=== PATIENT | female | born 1950 | race Caucasian/White ===

== ENCOUNTER → 2016-07-09 | Outpatient (CLI) | payer OTHER, MEDICARE ==
[~2016-07-09] MED LIST: ACET-1487 PO; ACT/35 PO; ASPI81TA28 PO; BUTA1CAP17 PO; CALC-338 PO; HYDR-5688 PO; IMD/2 PO; MULTTAB PO; NUTR-706 PO; PEPCID PO; PRAS25TA PO; SUMA50TA17 PO; WHEAPOW13 PO
[2016-07-09 10:05] LABS: ALT/SGPT 17 U/L (12-78); BLOOD UREA NITROGEN 10 mg/dl (7-18); CALCIUM 8.7 mg/dl (8.5-10.1); CARBON DIOXIDE 25 mmol/L (21-32); CHLORIDE 106 mmol/L (98-107); CHOLESTEROL 185 mg/dl (0-200); GLUCOSE 82 mg/dl (70-99); SODIUM 141 mmol/L (136-145)
[2016-07-09 10:08] LABS: ALB/GLOB RATIO 1.1 (0.9-2); ALKALINE PHOSPHATASE 49 U/L (45-117); AST/SGOT 15 U/L (15-37); CHOLESTEROL/HDL RATIO 3.4; HDL CHOLESTEROL 54 mg/dl; LDL CHOLESTEROL CALCULATED 101 mg/dl; TRIGLYCERIDES 150 mg/dl (0-150); VERY LOW DENSITY LIPOPROT CALC 30 mg/dl
== END | disposition home or self-care (01) ==
LOC: C.LAB 09:14
PROVIDERS: ATTEND Family Medicine
DX: I10 Essential (primary) hypertension (principal); E34.3 Short stature due to endocrine disorder

== ENCOUNTER 2020-06-23 14:51 | Observation (INO) ==
[2020-06-23] MEDS ORDERED: SODIUM CHLORIDE 0.9% 1000ML 500 ML IV ONE (15:24)
--- NOTE | 2020-06-23 15:25 | Emergency Department Note ---
Impression & Plan Weakness, Fall, Shingles ED Provider Note Provider: Wale Santamaria MD DATE OF SERVICE:06/23/2020 CHIEF COMPLAINT: Fall, feeling off HISTORY OF PRESENT ILLNESS: Patient is a 69-year-old female with a past medical history including back surgery currently lives at home with in [facility] presenting today after a fall. Patient states she was recently diagnosed with shingles on her right shoulder and right upper arm. This developed just after the new year and has been on some Valtrex since June 11 prescribed by her primary doctor. Patient reports this medicine seemed a bit strong to her as she is quite sensitive to medicines and she is actually only been taking half tablets twice a day of the 1 g Valtrex tablets. Patient states she stopped this 3 to 4 days ago. Patient states still has some pain and some numbness in her right upper extremity similar to this. Patient states over the last week however she has been feeling a bit off and under the weather. Today states she should have from a chair and felt a bit weak and then tripped and fell and hit her face on the left cheek on a [place] cabinet. Denies loss of conscious. Reports little bit of stiffness in her neck and some pain on her left cheek. Denies significant headache or visual change. Denies nausea or vomiting. Denies abdominal discomfort. Patient denies significant traumatic injury to the upper extremities or lower extremities. Patient denies recent URI symptoms or fever. Patient states he has been eating or drinking okay. Denies other recent medications. Patient states she is not been sleeping very well and her shingles pain has not been that well controlled. Patient states she been using just some Tylenol for pain at home. Sleep schedule is been erratic. Patient states she has not been using any stronger pain medicine that she does not want to get complications from it. REVIEW OF SYSTEMS: A total of 10 review of systems was obtained and negative except as stated above in the HPI. PAST MEDICAL HISTORY: As noted above MEDICATIONS: Reviewed home medication list SOCIAL HISTORY: Lives at home with . PHYSICAL EXAM: GENERAL: alert and oriented in no acute distress on stretcher Head: normocephalic with little bit of redness overlying the left maxillary cheek but no crepitus or obvious deformity otherwise. Stable midface EYES: No injection, discharge or icterus. PERRL, EOMI. NECK: Trachea midline. Supple with some predominantly right posterior lateral neck tenderness off midline. ENT: Mucous membranes pink and moist. TMs are clear bilaterally with some cer umen LUNGS: Airway patent. No retractions. Breath sounds clear with good air entry bilaterally. HEART: Regular rate and rhythm. No chest wall tenderness ABDOMEN: Soft and non-tender, without guarding or rebound. SKIN: Acyanotic, warm, dry. Patient does have a predominately scabbed over scattered vesicular rash on the right upper hand and right shoulder. No significant surrounding erythema or crepitus. Nikolsky negative. EXTREMITIES: Without swelling, tenderness or deformity NEUROLOGICAL: No focal deficits. No aphasia. No facial droop or slurred speech. Normal strength and tone in the extremities. Sensation to gross touch normal although she states she has little bit of paresthesia prickly in her right thumb that is been present since she is had shingles EK beats minute sinus rhythm with PVC or PAC. No acute ST segment elevation or depression. Some slight artifact noted. Normal QTC. CONTINUOUS CARDIAC MONITORING: was ordered and showed a heart rate of bpm in normal sinus rhythm GCS 15. Patient's laboratory studies and imaging reviewed. Differential includes Infection, dehydration, metabolic abnormality, hypo/hyperglycemia, electrolyte disturbance, anemia, hypoxia, cardiac sources, intracerebral event, toxicologic, neurologic, as well as other pathologies. IMPRESSION/MEDICAL DECISION MAKING: Patient presents after a fall today no significant loss of consciousness. Not on high risk blood thinners. Does have some tenderness and slight pain over the left maxilla with some erythema here. No evidence of ocular injury or entrapment. CT of the head face and cervical spine are complete although did have significant posterior midline tenderness of the cervical spine; per radiology interpretation these are without signs of acute traumatic injury. No neurological deficit grossly appreciated. Having what appears to be some resolving shingles rash on the right shoulder and right arm with some little bit of numbness but feels gross touch. Rash does not appear superinfected with a bacterial component. Patient has been a decreased dosage of valacyclovir and recently stopped it; at this time given the limited utility of further treatment in the course of her disease feel she wished to continue to not take it that is reasonable. Patient did receive prescription for Percocet from PCP several weeks ago but again states she is not been taking it regularly she does not want to become addicted or have issues from the medication. Patient denies true vertiginous symptoms like room spinning but feels a bit off balance particular when trying to walk. Patient has no focal neurological deficits beyond some slight reported paresthesia in the right thumb although gross sensations intact does not appear meningitic. I have a low suspicion for CVA at this time again denies actual dizziness or vertiginous symptoms at this point. Patient states she feels a bit weak and "off" over the past week. Denies chest pain shortness of breath or palpitations prior to fall today. No significant shortness of breath and denies URI symptoms or fever and lower s uspicion for Covid; however reports a negative Covid test several weeks ago however given her continued weakness of repeat was sent here. Does not seem that consistent with acute aortic dissection or PE either. EKG is obtained without significant arrhythmia. Troponin was sent but have a lower suspicion for acute ACS; troponin is undetectable. Metabolic panel and urine was ordered to evaluate for possible cause of her generalized weakness. TSH within normal limits. No signs of significant hepatic dysfunction. No severe electrolyte abnormalities or signs of renal dysfunction. CBC shows a leukocytosis of 13.6. No anemia. Myself and nursing at least 1-2 assist to the bathroom for urine sample collection. UA is not that impressive for infection. Denies significant urinary symptoms but endorsed weakness and feeling unsteady on her feet over the past week. Updated per her request and he was present in the waiting room. He does have the patient's cane and had an code in the car he reports. He also states the patient been quite weak and fatigued at home. Given this dis cussed with her continued observation here for further evaluation of her weakness/balance issues as well as PT and OT evaluation. Unsure of exact cause at this time but could be some combination of shingles with pain and decreased sleep worsening her situation. The hospitalist was contacted. DIAGNOSIS: Fall, weakness, shingles DISPOSITION: Hospitalist will evaluate Patient was agreeable with this plan. Past Med/Surg History Medical History (Updated 06/23/20 @ 15:52 by Wale Santamaria M.D.) Asthma ONLY USES RES. INH WHEN GETS A COLD > PT REPORTS ONLY HAS HALF LUNG ON LEFT SIDE > PRESENT AT High blood pressure Migraine Osteoarthritis Overactive bladder Surgical History (System 12/06/19 @ 09:04 by Aishwarya Gates) H/O section X1 H/O: hysterectomy History of appendectomy History of colonoscopy History of laminectomy LOWER BACK UP TO SHOULDERS History of tooth extraction Tubal ligation status Family History (System 12/06/19 @ 09:04 by Aishwarya Gates) Mother Diabetes Hypertension Father Myocardial infarction Social History Smoking Status: Never smoker Second Hand Exposure: Yes; Hx Alcohol Use: No Hx Substance Use: No Preferred Language: Occitan Communication Ability: Effective Storage Garage Attendant Required: No Beliefs That Will Affect Care: None marital status: Current Living Situation: Spouse current occupational status: unemployed Feels Safe at Home: Yes Assistive Devices: Glasses Allergies Allergies Allergy/AdvReac Type Severity Reaction Status Date / Time Penicillins Allergy Unknown Swelling Verified 12/06/19 09:04 of Lip/Tongue/Throat ibuprofen Allergy Swelling Verified 12/06/19 09:04 [From NeoProfen (ibuprofen of lysn)(PF)] Lip/Tongue/Throat lactose Allergy Gastrointestinal Verified 12/06/19 09:04 Upset Sulfa (Sulfonamide Allergy Hives Unverified 12/06/19 09:04 Antibiotics) Home Meds Home Medications Medication Instructions Recorded Confirmed aspirin [Neto Chewable Aspirin] 162 mg PO QAM 04/20/19 10/31/19 calcium carbonate-vitamin D3 2 tab PO QAM 04/20/19 10/31/19 [Calcium 500 + D] food supplemt, lactose-reduced 1 ea PO DAILY 04/20/19 10/31/19 [Ensure] hydrocodone-acetaminophen 0.5 - 1 tab PO DAILY PRN 04/20/19 10/31/19 ibandronate [Boniva] 150 mg PO MONTHLY 04/20/19 10/31/19 loperamide [Imodium A-D] 2 mg PO Q3H PRN 04/20/19 10/31/19 multivitamin 1 tab PO QAM 04/20/19 10/31/19 wheat dextrin [Benefiber Clear SF 1.5 g PO PM 04/20/19 10/31/19 (dextrin)] albuterol sulfate [ProAir HFA] 1 puff INHALATION QID PRN 07/24/19 10/31/19 amlodipine 2.5 mg PO QAM 07/24/19 10/31/19 oxybutynin chloride 2.5 mg PO PM 07/24/19 10/31/19 Results & Data (ED) Vital Signs Vital Signs - 24 hr 06/23/20 15:01 06/23/20 15:02 06/23/20 15:05 Temperature 36.9 C Temperature Source Oral Pulse Rate - Lying Pulse Rate - Sitting Pulse Rate 84 83 80 Pulse Rate from SpO2 Sensor Respiratory Rate 22 24 18 Blood Pressure - Lying Blood Pressure - Sitting Blood Pressure 108/72 117/68 Blood Pressure Mean 87 84 Pulse Oximetry 98 Oxygen Delivery Method Room Air Sepsis Recent Fever Within 48 Hours No Sepsis New/Unexplained Change in Mental Status No Sepsis Action Taken by Nursing No Action Required 06/23/20 15:27 06/23/20 15:30 06/23/20 15:31 Temperature Temperature Source Pulse Rate - Lying Pulse Rate - Sitting Pulse Rate 79 82 Pulse Rate from SpO2 Sensor Respiratory Rate 20 20 Blood Pressure - Lying Blood Pressure - Sitting Blood Pressure 115/66 Blood Pressure Mean 84 Pulse Oximetry 98 Oxygen Delivery Method Sepsis Recent Fever Within 48 Hours Sepsis New/Unexplained Change in Mental Status Sepsis Action Taken by Nursing 06/23/20 16:02 06/23/20 16:03 06/23/20 16:18 Temperature Temperature Source Pulse Rate - Lying Pulse Rate - Sitting Pulse Rate 75 78 86 Pulse Rate from SpO2 Sensor 72 79 Respiratory Rate 19 23 25 H Blood Pressure - Lying Blood Pressure - Sitting Blood Pressure 120/48 L 114/62 Blood Pressure Mean 67 68 Pulse Oximetry 99 99 Oxygen Delivery Method Sepsis Recent Fever Within 48 Hours Sepsis New/Unexplained Change in Mental Status Sepsis Action Taken by Nursing 06/23/20 16:23 06/23/20 16:30 Temperature Temperature Source Pulse Rate - Lying 70 Pulse Rate - Sitting 80 Pulse Rate 75 Pulse Rate from SpO2 Sensor Respiratory Rate 20 Blood Pressure - Lying 114/62 Blood Pressure - Sitting 116/63 Blood Pressure Blood Pressure Mean Pulse Oximetry Oxygen Delivery Method Sepsis Recent Fever Within 48 Hours Sepsis New/Unexplained Change in Mental Status Sepsis Action Taken by Nursing Laboratory Data Result diagrams: 06/23/20 16:30 06/23/20 16:30 Lab Results 06/23/20 06/23/20 06/23/20 Range/Units 15:39 15:39 16:30 WBC Cancelled 13.65 H RBC Cancelled 4.41 Hgb Cancelled 13.8 Hct Cancelled 40.5 MCV Cancelled 91.8 MCH Cancelled 31.3 MCHC Cancelled 34.1 RDW Std Deviation Cancelled 47.5 H RDW Coeff of Jak Cancelled 14.3 Plt Count Cancelled 310 MPV Cancelled 9.5 Immature Gran % (Auto) Cancelled 0.1 Neut % (Auto) Cancelled 69.4 Lymph % (Auto) Cancelled 21.4 Carter % (Auto) Cancelled 8.4 Eos % (Auto) Cancelled 0.5 Baso % (Auto) Cancelled 0.2 Neut # (Auto) Cancelled 9.47 H Lymph # (Auto) Cancelled 2.92 Carter # (Auto) Cancelled 1.14 H Eos # (Auto) Cancelled 0.07 Baso # (Auto) Cancelled 0.03 Immature Gran # (Auto) Cancelled 0.02 Absolute Nucleated RBC Cancelled Nucleated RBC % (auto) Cancelled Neutrophils % (Manual) Cancelled Band Neutrophils % Cancelled Lymphocytes % (Manual) Cancelled Prolymphocyte % Cancelled Reactive Lymphs % (Man) Cancelled Monocytes % (Manual) Cancelled Eosinophils % (Manual) Cancelled Basophils % (Manual) Cancelled Metamyelocytes % (Man) Cancelled Myelocytes % (Man) Cancelled Promyelocytes % (Man) Cancelled Blast Cells % (Manual) Cancelled Plasma Cell % (Manual) Cancelled Other Cells % Cancelled Nucleated RBC % Cancelled Neutrophils # (Manual) Cancelled Band Neutrophils # Cancelled Total Absolute Neuts Cancelled Lymphocytes # (Manual) Cancelled Prolymphocyte # Cancelled Reactive Lymphs # Cancelled Total Abs Lymphocytes Cancelled Monocytes # (Manual) Cancelled Eosinophils # (Manual) Cancelled Basophils # (Manual) Cancelled Metamyelocytes # (Man) Cancelled Myelocytes # (Manual) Cancelled Promyelocytes # (Man) Cancelled Blast Cells # (Man) Cancelled Plasma Cell # (Manual) Cancelled Other Cells # Cancelled Nucleated RBCs # (Man) Cancelled Hypersegmented Neuts Cancelled Hyposegmented Neuts Cancelled Hypogranular Neuts Cancelled Large Granular Lymphs Cancelled # Lrg Granular Lymphs Cancelled Hairy Cells Cancelled Smudge Cells Cancelled Toxic Granulation Cancelled Toxic Vacuolation Cancelled Dohle Bodies Cancelled Mani Rods Cancelled Platelet Estimate Cancelled Hypogranular Platelets Cancelled Clumped Platelets Cancelled Giant Platelets Cancelled Platelet Satelliting Cancelled RBC Morphology Cancelled Polychromasia Cancelled Hypochromasia Cancelled Poikilocytosis Cancelled Basophilic Stippling Cancelled Anisocytosis Cancelled Microcytosis Cancelled Macrocytosis Cancelled Spherocytes Cancelled Pappenheimer Bodies Cancelled Sickle Cells Cancelled Target Cells Cancelled Tear Drop Cells Cancelled Ovalocytes Cancelled Stomatocytes Cancelled [place] Bodies Cancelled Echinocytes Cancelled Acanthocytes (Spur) Cancelled Rouleaux Cancelled RBC Agglutinates Cancelled Schistocytes Cancelled RBC Morph Comment Cancelled Sezary Cell Cancelled Sodium 132 L (136-145) mmol/L Potassium (3.5-5.1) mmol/L Chloride 105 (98-107) mmol/L Carbon Dioxide 26 (21-32) mmol/L Anion Gap 1.0 L (3-11) BUN 12 (7-18) mg/dl Creatinine 0.61 (0.6-1.2) mg/dl Est Cr Clr Drug Dosing 54.0 ml/min Est GFR ( Amer) 105.7 Est GFR (Non-Af Amer) 91.2 BUN/Creatinine Ratio 19.9 (10-20) Glucose 99 (70-99) mg/dl Calcium 8.6 (8.5-10.1) mg/dl Magnesium (1.8-2.4) mg/dl Total Bilirubin 0.7 (0.2-1) mg/dl AST (15-37) U/L ALT 20 (12-78) U/L Alkaline Phosphatase 47 (45-117) U/L Troponin I < 0.015 (0-0.045) ng/ml Total Protein 6.8 (6.4-8.2) gm/dl Albumin 3.6 (3.4-5.0) gm/dl Globulin 3.2 (2.5-4.0) gm/dl Albumin/Globulin Ratio 1.1 (0.9-2) TSH 1.000 (0.300-4.500) uIu/ml Urine Color Urine Appearance (Clear) Urine pH (4.5-7.5) Ur Specific [place] (1.000-1.030) Urine Protein (Negative) Urine Glucose (UA) (Negative) Urine Ketones (Negative) Urine Blood (Negative) Urine Nitrite (Negative) Urine Bilirubin (Negative) Urine Urobilinogen (Negative) Ur Leukocyte Esterase (Negative) Urine WBC (Auto) (0-5) /hpf Urine RBC (Auto) (0-4) /hpf U Hyaline Cast (Auto) (0-5) /lpf U Epithel Cells (Auto) (0-5) /lpf Urine Bacteria (Auto) (Negative) COVID-19 Eval Order SARS-CoV-2, RNA, NAAT (NEGATIVE) 06/23/20 06/23/20 06/23/20 Range/Units 16:30 16:40 16:40 WBC RBC Hgb Hct MCV MCH MCHC RDW Std Deviation RDW Coeff of Jak Plt Count MPV Immature Gran % (Auto) Neut % (Auto) Lymph % (Auto) Carter % (Auto) Eos % (Auto) Baso % (Auto) Neut # (Auto) Lymph # (Auto) Carter # (Auto) Eos # (Auto) Baso # (Auto) Immature Gran # (Auto) Absolute Nucleated RBC Nucleated RBC % (auto) Neutrophils % (Manual) Band Neutrophils % Lymphocytes % (Manual) Prolymphocyte % Reactive Lymphs % (Man) Monocytes % (Manual) Eosinophils % (Manual) Basophils % (Manual) Metamyelocytes % (Man) Myelocytes % (Man) Promyelocytes % (Man) Blast Cells % (Manual) Plasma Cell % (Manual) Other Cells % Nucleated RBC % Neutrophils # (Manual) Band Neutrophils # Total Absolute Neuts Lymphocytes # (Manual) Prolymphocyte # Reactive Lymphs # Total Abs Lymphocytes Monocytes # (Manual) Eosinophils # (Manual) Basophils # (Manual) Metamyelocytes # (Man) Myelocytes # (Manual) Promyelocytes # (Man) Blast Cells # (Man) Plasma Cell # (Manual) Other Cells # Nucleated RBCs # (Man) Hypersegmented Neuts Hyposegmented Neuts Hypogranular Neuts Large Granular Lymphs # Lrg Granular Lymphs Hairy Cells Smudge Cells Toxic Granulation Toxic Vacuolation Dohle Bodies Mani Rods Platelet Estimate Hypogranular Platelets Clumped Platelets Giant Platelets Platelet Satelliting RBC Morphology Polychromasia Hypochromasia Poikilocytosis Basophilic Stippling Anisocytosis Microcytosis Macrocytosis Spherocytes Pappenheimer Bodies Sickle Cells Target Cells Tear Drop Cells Ovalocytes Stomatocytes [place] Bodies Echinocytes Acanthocytes (Spur) Rouleaux RBC Agglutinates Schistocytes RBC Morph Comment Sezary Cell Sodium (136-145) mmol/L Potassium 3.4 L (3.5-5.1) mmol/L Chloride (98-107) mmol/L Carbon Dioxide (21-32) mmol/L Anion Gap (3-11) BUN (7-18) mg/dl Creatinine (0.6-1.2) mg/dl Est Cr Clr Drug Dosing ml/min Est GFR ( Amer) Est GFR (Non-Af Amer) BUN/Creatinine Ratio (10-20) Glucose (70-99) mg/dl Calcium (8.5-10.1) mg/dl Magnesium 2.1 (1.8-2.4) mg/dl Total Bilirubin (0.2-1) mg/dl AST 12 L (15-37) U/L ALT (12-78) U/L Alkaline Phosphatase (45-117) U/L Troponin I (0-0.045) ng/ml Total Protein (6.4-8.2) gm/dl Albumin (3.4-5.0) gm/dl Globulin (2.5-4.0) gm/dl Albumin/Globulin Ratio (0.9-2) TSH (0.300-4.500) uIu/ml Urine Color Urine Appearance (Clear) Urine pH (4.5-7.5) Ur Specific [place] (1.000-1.030) Urine Protein (Negative) Urine Glucose (UA) (Negative) Urine Ketones (Negative) Urine Blood (Negative) Urine Nitrite (Negative) Urine Bilirubin (Negative) Urine Urobilinogen (Negative) Ur Leukocyte Esterase (Negative) Urine WBC (Auto) (0-5) /hpf Urine RBC (Auto) (0-4) /hpf U Hyaline Cast (Auto) (0-5) /lpf U Epithel Cells (Auto) (0-5) /lpf Urine Bacteria (Auto) (Negative) COVID-19 Eval Order Covid19 [facility] SARS-CoV-2, RNA, NAAT NEGATIVE (NEGATIVE) 06/23/20 Range/Units 17:08 WBC RBC Hgb Hct MCV MCH MCHC RDW Std Deviation RDW Coeff of Jak Plt Count MPV Immature Gran % (Auto) Neut % (Auto) Lymph % (Auto) Carter % (Auto) Eos % (Auto) Baso % (Auto) Neut # (Auto) Lymph # (Auto) Carter # (Auto) Eos # (Auto) Baso # (Auto) Immature Gran # (Auto) Absolute Nucleated RBC Nucleated RBC % (auto) Neutrophils % (Manual) Band Neutrophils % Lymphocytes % (Manual) Prolymphocyte % Reactive Lymphs % (Man) Monocytes % (Manual) Eosinophils % (Manual) Basophils % (Manual) Metamyelocytes % (Man) Myelocytes % (Man) Promyelocytes % (Man) Blast Cells % (Manual) Plasma Cell % (Manual) Other Cells % Nucleated RBC % Neutrophils # (Manual) Band Neutrophils # Total Absolute Neuts Lymphocytes # (Manual) Prolymphocyte # Reactive Lymphs # Total Abs Lymphocytes Monocytes # (Manual) Eosinophils # (Manual) Basophils # (Manual) Metamyelocytes # (Man) Myelocytes # (Manual) Promyelocytes # (Man) Blast Cells # (Man) Plasma Cell # (Manual) Other Cells # Nucleated RBCs # (Man) Hypersegmented Neuts Hyposegmented Neuts Hypogranular Neuts Large Granular Lymphs # Lrg Granular Lymphs Hairy Cells Smudge Cells Toxic Granulation Toxic Vacuolation Dohle Bodies Mani Rods Platelet Estimate Hypogranular Platelets Clumped Platelets Giant Platelets Platelet Satelliting RBC Morphology Polychromasia Hypochromasia Poikilocytosis Basophilic Stippling Anisocytosis Microcytosis Macrocytosis Spherocytes Pappenheimer Bodies Sickle Cells Target Cells Tear Drop Cells Ovalocytes Stomatocytes [place] Bodies Echinocytes Acanthocytes (Spur) Rouleaux RBC Agglutinates Schistocytes RBC Morph Comment Sezary Cell Sodium (136-145) mmol/L Potassium (3.5-5.1) mmol/L Chloride (98-107) mmol/L Carbon Dioxide (21-32) mmol/L Anion Gap (3-11) BUN (7-18) mg/dl Creatinine (0.6-1.2) mg/dl Est Cr Clr Drug Dosing ml/min Est GFR ( Amer) Est GFR (Non-Af Amer) BUN/Creatinine Ratio (10-20) Glucose (70-99) mg/dl Calcium (8.5-10.1) mg/dl Magnesium (1.8-2.4) mg/dl Total Bilirubin (0.2-1) mg/dl AST (15-37) U/L ALT (12-78) U/L Alkaline Phosphatase (45-117) U/L Troponin I (0-0.045) ng/ml Total Protein (6.4-8.2) gm/dl Albumin (3.4-5.0) gm/dl Globulin (2.5-4.0) gm/dl Albumin/Globulin Ratio (0.9-2) TSH (0.300-4.500) uIu/ml Urine Color Yellow Urine Appearance Clear (Clear) Urine pH 8.5 H (4.5-7.5) Ur Specific [place] 1.013 (1.000-1.030) Urine Protein Negative (Negative) Urine Glucose (UA) Negative (Negative) Urine Ketones Trace H (Negative) Urine Blood Negative (Negative) Urine Nitrite Negative (Negative) Urine Bilirubin Negative (Negative) Urine Urobilinogen Negative (Negative) Ur Leukocyte Esterase Trace H (Negative) Urine WBC (Auto) 1-5 (0-5) /hpf Urine RBC (Auto) 0-4 (0-4) /hpf U Hyaline Cast (Auto) 1-5 (0-5) /lpf U Epithel Cells (Auto) 20-30 H (0-5) /lpf Urine Bacteria (Auto) Negative (Negative) COVID-19 Eval Order SARS-CoV-2, RNA, NAAT (NEGATIVE) Administered Medications Discontinued Medications Sodium Chloride (Nss 1000ml) 500 mls @ 999 mls/hr IV .Q31M ONE Stop: 06/23/20 15:54 Last Admin: 06/23/20 15:48 Dose: 999 mls/hr Documented by: [id number] Discharge Plan Visit Data Chief Complaint: Vertigo ED Provider: Wale Santamaria Discharge Problem: Weakness, Fall, Shingles Forms Stand Alone Forms: [facility] Prescriptions Prescriptions: No Action multivitamin Tablet 1 tab PO QAM RF: 0 hydrocodone-acetaminophen 5-325 mg tablet 0.5 - 1 tab PO DAILY PRN (Reason: Pain) RF: 0 loperamide [Imodium A-D] 2 mg Tablet 2 mg PO Q3H PRN (Reason: Diarrhea) RF: 0 aspirin [Neto Chewable Aspirin] 81 mg Tablet,Chewable 162 mg PO QAM RF: 0 Ensure Liquid 1 ea PO DAILY RF: 0 ibandronate [Boniva] 150 mg tablet 150 mg PO MONTHLY RF: 0 calcium carbonate-vitamin D3 [Calcium 500 + D] 500 mg(1,250mg) -400 unit Tablet 2 tab PO QAM RF: 0 Benefiber Clear SF (dextrin) 3 gram/3.5 gram Powder In Packet 1.5 g PO PM RF: 0 amlodipine 2.5 mg Tablet 2.5 mg PO QAM RF: 0 oxybutynin chloride 5 mg Tablet 2.5 mg PO PM RF: 0 albuterol sulfate [ProAir HFA] 90 mcg/actuation Hfa Aerosol Inhaler 1 puff INHALATION QID PRN (Reason: Shortness Of Breath) RF: 0 Referrals Referrals: Eric Parra MD [Primary Care Provider] - Discharge Problem: Fall Qualifiers: Encounter type: initial encounter Qualified Code(s): W19.XXXA - Unspecified fall, initial encounter Shingles Qualifiers: Herpes zoster complications: with nervous system involvement 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
--- NOTE | 2020-06-23 15:55 | XRay Report ---
XR chest 1V portable HISTORY: dizzy COMPARISON: 07/11/2011. FINDINGS: No pneumothorax. No pleural effusions. Stable linear scarlike densities at the left lung ba se. The heart remains top normal in size. No new focal lung consolidations to suggest pneumonia. No e vidence for pulmonary edema. There is a small hiatus hernia. Chronic deformity within the shoulders, unchanged. IMPRESSION: No significant change compared to the prior study. No acute process. ACT 112: Negative or not required by law. Electronically signed by: Elias Laura M.D. 06/23/2020 3:54 PM
--- NOTE | 2020-06-23 16:07 | CT Scan Report ---
HEAD CT NONCONTRAST CT DOSE: HISTORY: fall, dizzy TECHNIQUE: Multiaxial CT images of the head were performed without the use of intravenous contrast. A utomated exposure control was utilized for this study. A dose lowering technique was utilized adheri ng to the principles of ALARA. Comparison: Head CT 10/31/2019. Findings: The paranasal sinuses and mastoid air cells are clear. The calvarium and skull base are int act. There is no mass, hematoma, midline shift, acute infarct. White matter hypodensity is nonspecifi c but suggestive of microvascular ischemic change. The ventricles and sulci demonstrate mild age-rela rodrigo involutional changes. 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 Impression: No significant change compared to the prior study. No acute intracranial abnormality. ACT 112: Negative or not required by law. Electronically signed by: Elias Laura M.D. 06/23/2020 4:06 PM
--- NOTE | 2020-06-23 16:11 | CT Scan Report ---
MAXILLOFACIAL CT CT DOSE: HISTORY: fall, L maxillary pain TECHNIQUE: Multiaxial CT images of the maxillofacial region were performed and reformatted in the cor onal plane without the use of contrast. A dose lowering technique was utilized adhering to the princ ipl[place]omon of NIRAV. COMPARISON: None. FINDINGS: The visualized cervical spine, skull base, pterygoid plates, nasal bones, lamina papyracea, orbital floors, mandible, and zygomatic arches are intact. No fractures. The orbits are unremarkable . IMPRESSION: No fractures within the maxillofacial region. ACT 112: Negative or not required by law. Electronically signed by: Elias Laura M.D. 06/23/2020 4:09 PM
[2020-06-23 16:13] LABS: Alanine Aminotransferase 20 U/L (12-78); Albumin Level 3.6 gm/dl (3.4-5.0); BUN Creatinine Ratio 19.9 (10-20); Blood Urea Nitrogen 12 mg/dl (7-18); Calcium 8.6 mg/dl (8.5-10.1); Carbon Dioxide 26 mmol/L (21-32); Chloride 105 mmol/L (98-107); Est GFR (African American) 105.7; Est GFR (Non-African American) 91.2; Glucose 99 mg/dl (70-99)
--- NOTE | 2020-06-23 16:14 | CT Scan Report ---
CERVICAL SPINE CT CT DOSE: 1085.18 mGy.cm HISTORY: fall TECHNIQUE: Multiaxial CT images of the cervical spine were performed and reformatted in the sagittal and coronal plane without the use of contrast. A dose lowering technique was utilized adhering to th e principles of ALARA. COMPARISON: None. FINDINGS: No fractures. No subluxation. Prevertebral soft tissues and the C1-C2 interval are intact. No pneumothorax. Fusion of the C2-C3 vertebral bodies and facets. There is reversal the normal lordot ic curvature. Moderate to severe disc space narrowing at C5-C6 and C6-C7. Small focal central disc pr otrusion at C4-C5. IMPRESSION: No fractures within the cervical spine. ACT 112: Negative or not required by law. Electronically signed by: Elias Laura M.D. 06/23/2020 4:13 PM
[2020-06-23 16:19] LABS: Albumin Globulin Ratio 1.1 (0.9-2); Alkaline Phosphatase 47 U/L (45-117); Bilirubin,Total 0.7 mg/dl (0.2-1); Globulin 3.2 gm/dl (2.5-4.0); Total Protein 6.8 gm/dl (6.4-8.2); Troponin I < 0.015 ng/ml (0-0.045)
[2020-06-23 16:38] LABS: Basophils # (auto) 0.03 K/uL (0-0.2); Basophils % (auto) 0.2 %; Eosinophils # (auto) 0.07 K/uL (0-0.5); Eosinophils % (auto) 0.5 %; Hematocrit (blood only) 40.5 % (37-47); Hemoglobin 13.8 g/dL (12.0-16.0); Immature Granulocytes # (auto) 0.02 K/uL (0.00-0.02); Immature Granulocytes % (auto) 0.1 %; Lymphocytes # (auto) 2.92 K/uL (1.2-3.4); Lymphocytes % (auto) 21.4 %; Mean Corpuscular Hemoglobin 31.3 pg (25-34); Mean Corpuscular Hgb Conc 34.1 g/dL (32-36); Mean Corpuscular Volume 91.8 fL (80-100); Mean Platelet Volume 9.5 fL (7.4-10.4); Monocytes # (auto) 1.14 K/uL (0.11-0.59); Monocytes % (auto) 8.4 %; Neutrophils # (auto) 9.47 K/uL (1.4-6.5); Neutrophils % (auto) 69.4 %; Platelet Count 310 K/uL (130-400); RDW Coefficient of Variation 14.3 % (11.5-14.5); RDW Standard Deviation 47.5 fL (36.4-46.3); Red Blood Count 4.41 M/uL (4.2-5.4); White Blood Count 13.65 K/uL (4.8-10.8)
[2020-06-23 16:48] LABS: Potassium 3.4 mmol/L (3.5-5.1)
[2020-06-23 16:54] LABS: Magnesium 2.1 mg/dl (1.8-2.4)
[2020-06-23 17:16] LABS: Appearance Urine Clear (Clear); Bacteria Urine Automated Negative (Negative); Bilirubin Urine Negative (Negative); Blood Urine Negative (Negative); Color Urine Yellow; Epithelial Cell Urine Auto 20-30 /lpf (0-5); Glucose Urine UA Negative (Negative); Ketones Urine Trace (Negative); Leukocyte Esterase Urine Trace (Negative); Nitrite Urine Negative (Negative); Protein Urine Negative (Negative); RBC Urine Automated 0-4 /hpf (0-4); Specific Gravity Urine 1.013 (1.000-1.030); Urobilinogen Urine Negative (Negative); pH Urine 8.5 (4.5-7.5)
--- NOTE | 2020-06-23 17:56 | History & Physical Report ---
Date of Service June 23, 2020 Assessment & Plan (1) Weakness: The cause the patient's weakness is not entirely clear, but could be from oxycodone use. She is also been getting very minimal sleep due to pain from the shingles and some of this difficulty with ambulation could be secondary to exhaustion. However, do need to rule out stroke as the cause Due to her numerous falls at home she will be admitted to the hospital and we will proceed in the following manner: We will place her on a monitored floor to ensure cardiac arrhythmia was not the cause of her falls We will check an MRI of her brain to help evaluate if she has suffered an acute stroke or if there is any concern for encephalitis although this is now suspected as she is clearly mentating very well and has no meningeal signs We will check hemoglobin A1c as well as lipid profile We will place her on antiplatelet therapy in the form of aspirin We will check orthostatic vitals We will maintain her on her home regimen of antihypertensive medications but appropriate holds for hypotension will be put in place We will provide gentle hydration with IV fluids We will obtain physical, occupational, and speech therapy consultations. We will involve discharge planning to ensure safe disposition -Discontinue oxycodone use Trial of Lyrica as below for shingles pain Based on the results of the above evaluation additional measures may be pursued. (2) Shingles: As patient feels the previously prescribed Valtrex is contributing to her current presentation she has self stopped this medication 3 days ago. We will continue to hold this medication We will provide analgesics should this condition cause her significant pain- start Lyrica 25 mg p.o. twice daily and discontinue oxycodone as above visits may be contributing to weakness and falls (3) Achondroplasia: Noted in history and has had significant back surgery in the past which causes her chronic pain (4) Hyponatremia: Sodium 132 on arrival but multiple lab errors have been discovered today and one of the chemistry machine is not working-suspect this may be erroneous Follow BMP in the morning (5) Leukocytosis: WBC count 13 K on arrival, may be stress response to recent fall Follow CBC in the morning Do not suspect infection anywhere (6) HTN (hypertension), benign: Blood pressures are well controlled Holding home amlodipine as above in case of hypotension contributing to falls Giving IV fluids (7) Depression: Continue home sertraline (8) Osteoporosis: On Boniva and calcium plus vitamin D at home (9) Fall: As above, no evidence of fractures to the face or trauma to the head PT/OT consultations placed (10) Overactive bladder: Continue home oxybutynin (11) DVT prophylaxis: We will use Lovenox for DVT prevention I discussed CODE STATUS with this patient she notes in the event of cardiopulmonary arrest she will be a level 1 full code History of Present Illness Chief Complaint: I fell numerous times at home Primary Care Provider: Eric Parra MD This is a 69-year-old female who lives in the [place] area but has a primary care physician who is Dr. Levar Parra of [facility]. Patient says that shortly after the new year she developed shingles affecting her right shoulder and right upper arm. She was placed on Valtrex as well as as needed oxycodone on June 11 by her primary care physician. Patient notes that since taking this medication she has felt somewhat under the weather. Since taking this medication she notes that she is fallen at home 3 times most recently being earlier today. I did question the patient about her fall and she said that she did not have any preceding chest pain or shortness of breath. She is not having nausea vomiting and feels she has been eating and drinking her normal amount and is therefore not dehydrated. Patient did not exhibit any unilateral arm or leg weakness. She did not have any visual loss or visual disturbances. She did not feel lightheaded or dizzy. She did not have any dysarthria or dysphagia. She notes today when she fell she struck her head on a [employer] cabinet and her found her and called EMS bringing her to [facility]. Thus far [facility] a chest x-ray did not reveal any evidence of pneumonia or CHF. CT scan of the head did not demonstrate any acute stroke or any intracerebral bleed. No fractures or subluxations were noted on the CT scan of the cervical spine. Patient had a facial CT scan and there were no f acial fractures noted. An EKG showed normal sinus rhythm without any acute ischemic changes. Labs including a CBC were white blood cell count was 13.6 hemoglobin, hematocrit, and platelet count were all noted to be within normal range. Her sodium was slightly low at 132 and potassium was slightly low at 3.4. Her BUN and creatinine were both within the normal range. There were no elevation of her cardiac enzymes. Urinalysis was not indicative of urinary tract infection and a Covid test was negative. After her ER evaluation the staff in the emergency department attempted to ambulate the patient from the bed to the restroom and patient exhibited some ambulatory dysfunction. Due to this concern and her falls at home we have been asked to admit her for further evaluation. As noted the patient does not have any chest pain or shortness of breath. She has no history of stroke during her current presentation did not exhibit any unilateral arm or leg weakness. Again she had no visual disturbances and no dysphagia or dysarthria. She has not had any fevers, shakes, or chills. She has no nausea vomiting. She does note as a result of her shingles she does have some burning in the affected area which is her right shoulder and right upper arm. At the time of my exam she is resting comfortably in bed she is not in any distress. Allergies Allergy/AdvReac Type Severity Reaction Status Date / Time Penicillins Allergy Unknown Swelling Verified 12/06/19 09:04 of Lip/Tongue/Throat ibuprofen Allergy Swelling Verified 12/06/19 09:04 [From NeoProfen (ibuprofen of lysn)(PF)] Lip/Tongue/Throat lactose Allergy Gastrointestinal Verified 12/06/19 09:04 Upset Sulfa (Sulfonamide Allergy Hives Unverified 12/06/19 09:04 Antibiotics) Home Medications Medication Instructions Recorded Confirmed Type aspirin [Neto Chewable Aspirin] 162 mg PO QAM 04/20/19 06/23/20 History calcium carbonate-vitamin D3 2 tab PO QAM 04/20/19 06/23/20 History [Calcium 500 + D] food supplemt, lactose-reduced 1 ea PO DAILY PRN 04/20/19 06/23/20 History [Ensure] ibandronate [Boniva] 150 mg PO MONTHLY 04/20/19 06/23/20 History loperamide [Imodium A-D] 2 mg PO Q3H PRN 04/20/19 06/23/20 History multivitamin 1 tab PO QAM 04/20/19 06/23/20 History wheat dextrin [Benefiber Clear SF 1.5 g PO HS PRN 04/20/19 06/23/20 History (dextrin)] amlodipine 2.5 mg PO QAM 07/24/19 06/23/20 History oxybutynin chloride 5 mg PO HS 07/24/19 06/23/20 History oxycodone-acetaminophen 0.5 - 1 tab PO QID PRN 06/23/20 06/23/20 History sertraline 25 mg PO QAM 06/23/20 06/23/20 History Past Med/Surg History Medical History (Updated 06/23/20 @ 20:42 by Tamera Pina MD) Achondroplasia Asthma ONLY USES RES. INH WHEN GETS A COLD > PT REPORTS ONLY HAS HALF LUNG ON LEFT SIDE > PRESENT AT Depression High blood pressure HTN (hypertension), benign Migraine Osteoarthritis Osteoporosis Overactive bladder Surgical History H/O section X1 H/O: hysterectomy History of appendectomy History of colonoscopy History of laminectomy LOWER BACK UP TO SHOULDERS History of tooth extraction Tubal ligation status Family History Mother Diabetes Hypertension Father Myocardial infarction Social History Smoking Status: Never smoker Second Hand Exposure: Yes; Hx Alcohol Use: No Hx Substance Use: No Preferred Language: Nepali Communication Ability: Effective Combat Control Required: No Beliefs That Will Affect Care: None marital status: Current Living Situation: Spouse current occupational status: unemployed Other Information That Helps Us Care for You: No Feels Safe at Home: Yes Safety Concerns: Feels Safe At This Time Assistive Devices: Cane, Glasses, Walker and Wheelchair Assistive Devices Comment: electric scooter Review of Systems Constitutional: no fever, no chills, no fatigue and no anorexia Eyes: + corrective lenses; no blind spots, no diplopia and no loss of peripheral vision Ear, Nose, Mouth, Throat: no ear pain and no tinnitus Respiratory: no cough and no dyspnea Cardiovascular: no chest pain, no palpitations and no syncope Gastrointestinal: no abdominal pain, no nausea, no vomiting and no diarrhea/loose stools Genitourinary: no dysuria Musculoskeletal: no back pain Integumentary: + rash (Right shoulder and right upper arm) Neurologic: + gait abnormality and + generalized weakness; no localized weakness Physical Exam Constitutional: well developed and well nourished; no acute distress Eyes: PERRL and EOM intact bilaterally Wears glasses ENMT: Ears: no hearing impairment No vesicles noted on the tympanic membranes, no evidence of nasal trauma, oral mucosa is moist Neck: trachea midline Respiratory: normal respiratory effort, lungs clear to auscultation Cardiovascular: Rate/Rhythm: regular rate and regular rhythm Vessels: dorsalis pedis pulses present and radial pulses present Gastrointestinal (Abdomen): Percussion/Palpation: abdomen soft; abdomen nontender No pain with palpation Musculoskeletal: No calf tenderness, no gross orthopedic abnormalities Skin: normal turgor Vesicles noted on the right shoulder and right upper arm consistent with shingles Neurologic: CN's II-XI intact bilaterally, moves all extremities and awake Cranial Nerves: PERRL and normal hearing Patient is able to move all 4 extremities and follows simple commands without noted focal deficits. Her speech is coherent and nongarbled Psychiatric: A+Ox3, euthymic affect Results & Data Results & Data ([facility]) Vital Signs (Past 12 Hours) Vital Signs Temp Pulse Resp BP Pulse Ox 06/23/20 17:30 87 20 97 06/23/20 17:07 98 H 20 97 06/23/20 16:30 75 20 06/23/20 16:18 86 25 H 114/62 06/23/20 16:03 78 23 120/48 L 99 06/23/20 16:02 75 19 99 06/23/20 15:31 82 20 06/23/20 15:30 79 20 115/66 06/23/20 15:27 98 06/23/20 15:05 36.9 C 80 18 117/68 98 06/23/20 15:02 83 24 06/23/20 15:01 84 22 108/72 Laboratory Results 06/23/20 06/23/20 06/23/20 Range/Units 17:08 16:40 16:40 WBC RBC Hgb Hct MCV MCH MCHC RDW Std Deviation RDW Coeff of Jak Plt Count MPV Immature Gran % (Auto) Neut % (Auto) Lymph % (Auto) [place] % (Auto) Eos % (Auto) Baso % (Auto) Neut # (Auto) Lymph # (Auto) [place] # (Auto) Eos # (Auto) Baso # (Auto) Immature Gran # (Auto) Absolute Nucleated RBC Nucleated RBC % (auto) Neutrophils % (Manual) Band Neutrophils % Lymphocytes % (Manual) Prolymphocyte % Reactive Lymphs % (Man) Monocytes % (Manual) Eosinophils % (Manual) Basophils % (Manual) Metamyelocytes % (Man) Myelocytes % (Man) Promyelocytes % (Man) Blast Cells % (Manual) Plasma Cell % (Manual) Other Cells % Nucleated RBC % Neutrophils # (Manual) Band Neutrophils # Total Absolute Neuts Lymphocytes # (Manual) Prolymphocyte # Reactive Lymphs # Total Abs Lymphocytes Monocytes # (Manual) Eosinophils # (Manual) Basophils # (Manual) Metamyelocytes # (Man) Myelocytes # (Manual) Promyelocytes # (Man) Blast Cells # (Man) Plasma Cell # (Manual) Other Cells # Nucleated RBCs # (Man) Hypersegmented Neuts Hyposegmented Neuts Hypogranular Neuts Large Granular Lymphs # Lrg Granular Lymphs Hairy Cells Smudge Cells Toxic Granulation Toxic Vacuolation Dohle Bodies Mani Rods Platelet Estimate Hypogranular Platelets Clumped Platelets Giant Platelets Platelet Satelliting RBC Morphology Polychromasia Hypochromasia Poikilocytosis Basophilic Stippling Anisocytosis Microcytosis Macrocytosis Spherocytes Pappenheimer Bodies Sickle Cells Target Cells Tear Drop Cells Ovalocytes Stomatocytes Herrera-Madeline Bodies Echinocytes Acanthocytes (Spur) Rouleaux RBC Agglutinates Schistocytes RBC Morph Comment Sezary Cell Sodium (136-145) mmol/L Potassium (3.5-5.1) mmol/L Chloride (98-107) mmol/L Carbon Dioxide (21-32) mmol/L Anion Gap (3-11) BUN (7-18) mg/dl Creatinine (0.6-1.2) mg/dl Est Cr Clr Drug Dosing ml/min Est GFR ( Amer) Est GFR (Non-Af Amer) BUN/Creatinine Ratio (10-20) Glucose (70-99) mg/dl Calcium (8.5-10.1) mg/dl Magnesium (1.8-2.4) mg/dl Total Bilirubin (0.2-1) mg/dl AST (15-37) U/L ALT (12-78) U/L Alkaline Phosphatase (45-117) U/L Troponin I (0-0.045) ng/ml Total Protein (6.4-8.2) gm/dl Albumin (3.4-5.0) gm/dl Globulin (2.5-4.0) gm/dl Albumin/Globulin Ratio (0.9-2) TSH (0.300-4.500) uIu/ml Urine Color Yellow Urine Appearance Clear (Clear) Urine pH 8.5 H (4.5-7.5) Ur Specific [place] 1.013 (1.000-1.030) Urine Protein Negative (Negative) Urine Glucose (UA) Negative (Negative) Urine Ketones Trace H (Negative) Urine Blood Negative (Negative) Urine Nitrite Negative (Negative) Urine Bilirubin Negative (Negative) Urine Urobilinogen Negative (Negative) Ur Leukocyte Esterase Trace H (Negative) Urine WBC (Auto) 1-5 (0-5) /hpf Urine RBC (Auto) 0-4 (0-4) /hpf U Hyaline Cast (Auto) 1-5 (0-5) /lpf U Epithel Cells (Auto) 20-30 H (0-5) /lpf Urine Bacteria (Auto) Negative (Negative) COVID-19 Eval [facility] [place] Screen (Neg) SARS-CoV-2, RNA, NAAT NEGATIVE (NEGATIVE) 06/23/20 06/23/20 06/23/20 Range/Units 16:30 16:30 16:30 WBC 13.65 H RBC 4.41 Hgb 13.8 Hct 40.5 MCV 91.8 MCH 31.3 MCHC 34.1 RDW Std Deviation 47.5 H RDW Coeff of Jak 14.3 Plt Count 310 MPV 9.5 Immature Gran % (Auto) 0.1 Neut % (Auto) 69.4 Lymph % (Auto) 21.4 [place] % (Auto) 8.4 Eos % (Auto) 0.5 Baso % (Auto) 0.2 Neut # (Auto) 9.47 H Lymph # (Auto) 2.92 [place] # (Auto) 1.14 H Eos # (Auto) 0.07 Baso # (Auto) 0.03 Immature Gran # (Auto) 0.02 Absolute Nucleated RBC Nucleated RBC % (auto) Neutrophils % (Manual) Band Neutrophils % Lymphocytes % (Manual) Prolymphocyte % Reactive Lymphs % (Man) Monocytes % (Manual) Eosinophils % (Manual) Basophils % (Manual) Metamyelocytes % (Man) Myelocytes % (Man) Promyelocytes % (Man) Blast Cells % (Manual) Plasma Cell % (Manual) Other Cells % Nucleated RBC % Neutrophils # (Manual) Band Neutrophils # Total Absolute Neuts Lymphocytes # (Manual) Prolymphocyte # Reactive Lymphs # Total Abs Lymphocytes Monocytes # (Manual) Eosinophils # (Manual) Basophils # (Manual) Metamyelocytes # (Man) Myelocytes # (Manual) Promyelocytes # (Man) Blast Cells # (Man) Plasma Cell # (Manual) Other Cells # Nucleated RBCs # (Man) Hypersegmented Neuts Hyposegmented Neuts Hypogranular Neuts Large Granular Lymphs # Lrg Granular Lymphs Hairy Cells Smudge Cells Toxic Granulation Toxic Vacuolation Dohle Bodies Mani Rods Platelet Estimate Hypogranular Platelets Clumped Platelets Giant Platelets Platelet Satelliting RBC Morphology Polychromasia Hypochromasia Poikilocytosis Basophilic Stippling Anisocytosis Microcytosis Macrocytosis Spherocytes Pappenheimer Bodies Sickle Cells Target Cells Tear Drop Cells Ovalocytes Stomatocytes Herrera-Madeline Bodies Echinocytes Acanthocytes (Spur) Rouleaux RBC Agglutinates Schistocytes RBC Morph Comment Sezary Cell Sodium (136-145) mmol/L Potassium 3.4 L (3.5-5.1) mmol/L Chloride (98-107) mmol/L Carbon Dioxide (21-32) mmol/L Anion Gap (3-11) BUN (7-18) mg/dl Creatinine (0.6-1.2) mg/dl Est Cr Clr Drug Dosing ml/min Est GFR ( Amer) Est GFR (Non-Af Amer) BUN/Creatinine Ratio (10-20) Glucose (70-99) mg/dl Calcium (8.5-10.1) mg/dl Magnesium 2.1 (1.8-2.4) mg/dl Total Bilirubin (0.2-1) mg/dl AST 12 L (15-37) U/L ALT (12-78) U/L Alkaline Phosphatase (45-117) U/L Troponin I (0-0.045) ng/ml Total Protein (6.4-8.2) gm/dl Albumin (3.4-5.0) gm/dl Globulin (2.5-4.0) gm/dl Albumin/Globulin Ratio (0.9-2) TSH (0.300-4.500) uIu/ml Urine Color Urine Appearance (Clear) Urine pH (4.5-7.5) Ur Specific [place] (1.000-1.030) Urine Protein (Negative) Urine Glucose (UA) (Negative) Urine Ketones (Negative) Urine Blood (Negative) Urine Nitrite (Negative) Urine Bilirubin (Negative) Urine Urobilinogen (Negative) Ur Leukocyte Esterase (Negative) Urine WBC (Auto) (0-5) /hpf Urine RBC (Auto) (0-4) /hpf U Hyaline Cast (Auto) (0-5) /lpf U Epithel Cells (Auto) (0-5) /lpf Urine Bacteria (Auto) (Negative) COVID-19 Eval Order Hepatitis C Ab Screen Neg (Neg) SARS-CoV-2, RNA, NAAT (NEGATIVE) 06/23/20 06/23/20 Range/Units 15:39 15:39 WBC Cancelled RBC Cancelled Hgb Cancelled Hct Cancelled MCV Cancelled MCH Cancelled MCHC Cancelled RDW Std Deviation Cancelled RDW Coeff of Jak Cancelled Plt Count Cancelled MPV Cancelled Immature Gran % (Auto) Cancelled Neut % (Auto) Cancelled Lymph % (Auto) Cancelled [place] % (Auto) Cancelled Eos % (Auto) Cancelled Baso % (Auto) Cancelled Neut # (Auto) Cancelled Lymph # (Auto) Cancelled [place] # (Auto) Cancelled Eos # (Auto) Cancelled Baso # (Auto) Cancelled Immature Gran # (Auto) Cancelled Absolute Nucleated RBC Cancelled Nucleated RBC % (auto) Cancelled Neutrophils % (Manual) Cancelled Band Neutrophils % Cancelled Lymphocytes % (Manual) Cancelled Prolymphocyte % Cancelled Reactive Lymphs % (Man) Cancelled Monocytes % (Manual) Cancelled Eosinophils % (Manual) Cancelled Basophils % (Manual) Cancelled Metamyelocytes % (Man) Cancelled Myelocytes % (Man) Cancelled Promyelocytes % (Man) Cancelled Blast Cells % (Manual) Cancelled Plasma Cell % (Manual) Cancelled Other Cells % Cancelled Nucleated RBC % Cancelled Neutrophils # (Manual) Cancelled Band Neutrophils # Cancelled Total Absolute Neuts Cancelled Lymphocytes # (Manual) Cancelled Prolymphocyte # Cancelled Reactive Lymphs # Cancelled Total Abs Lymphocytes Cancelled Monocytes # (Manual) Cancelled Eosinophils # (Manual) Cancelled Basophils # (Manual) Cancelled Metamyelocytes # (Man) Cancelled Myelocytes # (Manual) Cancelled Promyelocytes # (Man) Cancelled Blast Cells # (Man) Cancelled Plasma Cell # (Manual) Cancelled Other Cells # Cancelled Nucleated RBCs # (Man) Cancelled Hypersegmented Neuts Cancelled Hyposegmented Neuts Cancelled Hypogranular Neuts Cancelled Large Granular Lymphs Cancelled # Lrg Granular Lymphs Cancelled Hairy Cells Cancelled Smudge Cells Cancelled Toxic Granulation Cancelled Toxic Vacuolation Cancelled Dohle Bodies Cancelled Mani Rods Cancelled Platelet Estimate Cancelled Hypogranular Platelets Cancelled Clumped Platelets Cancelled Giant Platelets Cancelled Platelet Satelliting Cancelled RBC Morphology Cancelled Polychromasia Cancelled Hypochromasia Cancelled Poikilocytosis Cancelled Basophilic Stippling Cancelled Anisocytosis Cancelled Microcytosis Cancelled Macrocytosis Cancelled Spherocytes Cancelled Pappenheimer Bodies Cancelled Sickle Cells Cancelled Target Cells Cancelled Tear Drop Cells Cancelled Ovalocytes Cancelled Stomatocytes Cancelled Herrera-Madeline Bodies Cancelled Echinocytes Cancelled Acanthocytes (Spur) Cancelled Rouleaux Cancelled RBC Agglutinates Cancelled Schistocytes Cancelled RBC Morph Comment Cancelled Sezary Cell Cancelled Sodium 132 L (136-145) mmol/L Potassium (3.5-5.1) mmol/L Chloride 105 (98-107) mmol/L Carbon Dioxide 26 (21-32) mmol/L Anion Gap 1.0 L (3-11) BUN 12 (7-18) mg/dl Creatinine 0.61 (0.6-1.2) mg/dl Est Cr Clr Drug Dosing 54.0 ml/min Est GFR ( Amer) 105.7 Est GFR (Non-Af Amer) 91.2 BUN/Creatinine Ratio 19.9 (10-20) Glucose 99 (70-99) mg/dl Calcium 8.6 (8.5-10.1) mg/dl Magnesium (1.8-2.4) mg/dl Total Bilirubin 0.7 (0.2-1) mg/dl AST (15-37) U/L ALT 20 (12-78) U/L Alkaline Phosphatase 47 (45-117) U/L Troponin I < 0.015 (0-0.045) ng/ml Total Protein 6.8 (6.4-8.2) gm/dl Albumin 3.6 (3.4-5.0) gm/dl Globulin 3.2 (2.5-4.0) gm/dl Albumin/Globulin Ratio 1.1 (0.9-2) TSH 1.000 (0.300-4.500) uIu/ml Urine Color Urine Appearance (Clear) Urine pH (4.5-7.5) Ur Specific [place] (1.000-1.030) Urine Protein (Negative) Urine Glucose (UA) (Negative) Urine Ketones (Negative) Urine Blood (Negative) Urine Nitrite (Negative) Urine Bilirubin (Negative) Urine Urobilinogen (Negative) Ur Leukocyte Esterase (Negative) Urine WBC (Auto) (0-5) /hpf Urine RBC (Auto) (0-4) /hpf U Hyaline Cast (Auto) (0-5) /lpf U Epithel Cells (Auto) (0-5) /lpf Urine Bacteria (Auto) (Negative) COVID-19 Eval Order Hepatitis C Ab Screen (Neg) SARS-CoV-2, RNA, NAAT (NEGATIVE) Diagnostic Findings CT maxillofacial-no fractures within the maxillofacial region CT cervical spine: Negative for fracture, but with fusion of the C2-C3 vertebral bodies and facets and moderate to severe disc space narrowing at C5-C7, small focal central disc protrusion at C4-C5 CT head noncontrast-microvascular ischemic change, mild age-related involutional changes, chronic mild narrowing at the cervical medullary junction unchanged and likely congenital-no significant change compared to prior study Chest x-ray: Stable linear scarlike densities at the left lung base, heart top normal in size, small hiatus hernia, chronic deformity within the shoulders unchanged, no acute process Supervising Physician Co-Signing Physician Notes PA Supervision Note: I personally saw and examined the patient. I verified all irvin points and agree with ROB Denise with the following exceptions and/or additions: This patient is a 69-year-old female with history of achondroplasia, hypertension, overactive bladder, osteoporosis, and depression who presents to the ER after a recent bout of shingles for the last 10 days for which she has been taking oxycodone and Valtrex. She began feeling weak over the last week and has had several falls, one resulted today in hitting the left side of her face of a [employer] cabinet at home. She denies any headache. She is having significant pain in the right shoulder down to the right upper extremity at the site of her shingles. She denies any dizziness or vertigo. No weakness or numbness in a limb. Denies chest pain or increased shortness of breath over her chronic shortness of breath. She has chronic back pain. No visual changes or slurred speech. History and ROS reviewed as above Vitals reviewed Gen: Small stature, short arms and legs, AAOx3, NAD HEENT: Anicteric sclerae, EOMI CV: RRR no mgr nl S1S2 Pulm: CTAB no wcr Abd: +BS soft NT ND no masses or hernias Ext: No edema, shortened limbs, 2+ DP pulses Skin: Right shoulder and right upper extremity with macular erythematous rash with some scabs on the right hand from previous vesicles Neuro: Full strength throughout, cranial nerves II through XII intact Laboratory values reviewed Imaging studies reviewed ECG reviewed showing normal sinus rhythm with short WA, left anterior fascicular block, nonspecific ST and T wave abnormality in the anterior leads-no comparison This patient is a 69-year-old female with history as above, here with ambulatory dysfunction, weakness, in the setting of taking Valtrex and Percocet for recent right upper extremity shingles infection. Suspect side effect of medication versus exhaustion from not getting good sleep due to pain. -Hold oxycodone and start Lyrica low-dose instead for shingles type pain Stroke work-up with MRI of the brain for now. If indeed has stroke, would recommend completing the rest of the work-up but very low suspicion for stroke at this time. PG Care Time/CCT Total # of Minutes Spent Total Time Spent with Patient: Total time spent is greater than 50% in coordination of care (as documented) at patient's floor/unit and/or counseling patient: Coding Level of Care Code 14572 OBS Care - Level 3 Diagnoses Weakness R53.1 Shingles B02.23 Herpes zoster complications: with nervous system involvement Herpes zoster neurologic complication detail: postherpetic polyneuropathy Achondroplasia Q77.4 Hyponatremia E87.1 Leukocytosis D72.829 HTN (hypertension), benign I10 Depression F32.9 Osteoporosis M81.0 Fall W19.XXXA Encounter type: initial encounter Overactive bladder N32.81 DVT prophylaxis Z29.9 (1) Shingles Herpes zoster complications: with nervous system involvement 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 (2) Fall Encounter type: initial encounter Qualified Code(s): W19.XXXA - Unspecified fall, initial encounter
[2020-06-23] MEDS ORDERED: LOPERAMIDE HCL 2 MG CAP PO PRN (19:51)
[2020-06-23] MEDS ORDERED: PHARMACIST DISCHARGE MED REC CONSULT PRN (19:51)
[2020-06-23] MEDS ORDERED: NON-FORMULARY MEDICATION (Food Supplemt, Lactose-Reduced [Ensure] Liquid) PO PRN (19:51)
[2020-06-23] MEDS ORDERED: PSYLLIUM 58.6% POWDER PACKET PO PRN (19:51)
[2020-06-23] MEDS ORDERED: oxyCODONE/ACETAMINOPHEN 5mg/325mg TAB PO PRN (19:51)
[2020-06-23] MEDS: PREGABALIN 25 MG CAP PO SCH (20:35)
[2020-06-23] MEDS: SODIUM CHLORIDE 0.9% 1000ML 1,000 ML IV SCH (20:35)
[2020-06-23 21:55] LABS: Sodium 141 mmol/L (136-145)
[2020-06-23] MEDS: OXYBUTYNIN CHLORIDE 5 MG TAB PO SCH (23:06)
[2020-06-24] MEDS ORDERED: KETOROLAC TROMETHAMINE 15 MG/ML VIAL IV ONE (01:20)
[2020-06-24] MEDS ORDERED: diphenhydrAMINE 50 MG/ML VIAL IV STA ×2 (02:03→03:04)
[2020-06-24] MEDS: ACETAMINOPHEN 325 MG TAB PO PRN ×3 (02:14→20:23)
[2020-06-24] MEDS ORDERED: PREGABALIN 25 MG CAP PO STA (03:07)
[2020-06-24] MEDS ORDERED: oxyCODONE HCL IR 5 MG TAB (IMMEDIATE RELEASE) PO STA (03:11)
--- NOTE | 2020-06-24 06:16 | Electrocardiogram Report ---
Test Reason : Blood Pressure : / mmHG Vent. Rate : 080 BPM Atrial Rate : 080 BPM P-R Int : 110 ms QRS Dur : 074 ms QT Int : 376 ms P-R-T Axes : -09 -63 014 degrees QTc Int : 433 ms Sinus rhythm with short MI Left anterior fascicular block Nonspecific ST and T wave abnormality Abnormal ECG No previous ECGs available Confirmed by Doug Bartlett ([id number]) on 06/24/2020 6:16:26 AM Referred By: PROTOCOL Confirmed By:Doug Bartlett
[2020-06-24] MEDS: SODIUM CHLORIDE 0.9% 1000ML 1,000 ML IV SCH ×2 (07:44→20:25)
[2020-06-24] MEDS: PREGABALIN 25 MG CAP PO SCH ×2 (07:44→20:43)
[2020-06-24] MEDS: MICONAZOLE NITRATE POWDER 43 GM EXT PRN (07:46)
[2020-06-24] MEDS: ASPIRIN 81 MG ECTAB PO SCH (07:47)
[2020-06-24] MEDS: SERTRALINE HCL 50 MG TABLET PO SCH (07:48)
[2020-06-24] MEDS: CALCIUM 600MG + VIT D 400 IU TAB PO SCH (07:49)
[2020-06-24] MEDS: amLODIPine BESYLATE 5 MG TAB PO SCH (07:50)
[2020-06-24] MEDS: MULTIVITAMIN TAB PO SCH (07:50)
[2020-06-24] MEDS: ENOXAPARIN INJ 40 MG/0.4 ML SYR SQ SCH (07:51)
[2020-06-24 08:40] LABS: Basophils # (auto) 0.03 K/uL (0-0.2); Basophils % (auto) 0.4 %; Eosinophils # (auto) 0.11 K/uL (0-0.5); Eosinophils % (auto) 1.5 %; Hematocrit (blood only) 42.3 % (37-47); Hemoglobin 13.8 g/dL (12.0-16.0); Immature Granulocytes # (auto) 0.02 K/uL (0.00-0.02); Immature Granulocytes % (auto) 0.3 %; Lymphocytes # (auto) 2.34 K/uL (1.2-3.4); Lymphocytes % (auto) 31.5 %; Mean Corpuscular Hemoglobin 30.5 pg (25-34); Mean Corpuscular Hgb Conc 32.6 g/dL (32-36); Mean Corpuscular Volume 93.4 fL (80-100); Mean Platelet Volume 9.3 fL (7.4-10.4); Monocytes # (auto) 0.66 K/uL (0.11-0.59); Monocytes % (auto) 8.9 %; Neutrophils # (auto) 4.28 K/uL (1.4-6.5); Neutrophils % (auto) 57.4 %; Platelet Count 278 K/uL (130-400); RDW Coefficient of Variation 14.6 % (11.5-14.5); RDW Standard Deviation 49.7 fL (36.4-46.3); Red Blood Count 4.53 M/uL (4.2-5.4); White Blood Count 7.44 K/uL (4.8-10.8)
[2020-06-24 09:11] LABS: Calcium 8.6 mg/dl (8.5-10.1); Creatinine Clr Calc Pharmacy 58.2 ml/min; Est GFR (African American) 108.1; Est GFR (Non-African American) 93.3; Potassium 3.4 mmol/L (3.5-5.1)
[2020-06-24 09:52] LABS: Estimated Average Glucose 117 mg/dl; Hemoglobin A1C 5.7 % (4.5-5.6)
--- NOTE | 2020-06-24 10:03 | Hospitalist Progress Note ---
Date of Service June 24, 2020 Assessment & Plan (1) Shingles: 69 yo F w hx HTN, osteoporotic fractures, achodroplasia, admitted for global weakness in context of recent shingles infection. Shingles - valacyclovir for containment of infection - benadryl 25 mg TID PRN for itching, calomine lotion, lidocaine patches to aid itching + local pain - varicella contact precautions Weakness - MRI negative for intracranial abnormalities - labs negative for acute bacterial infection - electrolyte derangements (hypokalemia) may contribute to lethargy hwoever do not fully account for symptoms - given R>L weakness in upper arms, weakness likely secondary to shingles and decreased PO intake since start of infection - continue support care, monitoring for improvement - ER workup for fall negative for acute face, c-spine fractures or bleeding on CT DVT:lovenox FEN/GI: NS @ 100, regular diet Code Status: Full Code Dispo: home vs. SNF pending Pt/Ot evals (2) Hyponatremia: (3) Weakness: (4) Overactive bladder: (5) Osteoporosis: (6) HTN (hypertension), benign: Admission and Anticipated Discharge Date Admission Date: June 23, 2020 Supervising Physician Co-Signing Physician Notes I personally examined the patient and verified all irvin points of history and exam, discussed case, and agree with decision making with Dr Delgado. still feeling weak. shingles started about 10 days ago - now mostly really itchy. R thumb also fairly numb. notes poor sleep and reduced PO intake since shingles started vitals noted nad heent nc at mmm breathing unlabored no accessory muscles good effort skin old healing shingles type rash mostly C6 region R arm. R thumb diminished sensation no noted motor deficit weakness/failure to thrive - related to shingles- possibly some directly just due to metabolic stress, also indirect due to poor sleep/poor PO intake, possibly med side effects. since healed lesions and itchy more than burning - lidocaine patches, benadryl prn in addition to current measures. PT/OT eval and treat. rehab once possible unless she shows quick/dramatic improvement otherwise as above Subjective feeling fatigued and generally weak this morning. says this started a few days ago when she contracted shingles. feels globally weak without focality. impaired appetite. Review of Systems Constitutional: + fatigue; no fever, no chills and no body aches +itching, +rash Respiratory: no cough and no dyspnea Cardiovascular: no chest pain, no dyspnea and no edema Gastrointestinal: no abdominal pain, no nausea, no vomiting, no constipation and no diarrhea/loose stools Genitourinary: no dysuria Physical Exam Physical Exam: Constitutional: petite female sitting in mild distress, visibly uncomfortable Eyes: EOMI, pupils equal and reactive bilaterally, no scleral icterus Cardiac: RRR, no murmurs, gallops or rubs. Normal S1, S2 MSK: strength 5/5 in BL lower extremities, right < left upper arm strength skin: rash of right upper arm into antecubital fossa Results & Data Results & Data ([facility]) Vital Signs (Past 12 Hours) Vital Signs Temp Pulse Resp BP Pulse Ox 06/24/20 07:52 36.7 C 83 18 128/79 99 06/24/20 04:00 36.7 C 77 20 163/78 H 93 06/23/20 23:21 36.9 C 77 20 140/70 93 Laboratory Results WBC 7.44 K/uL (4.8-10.8) 06/24/20 08:25 RBC 4.53 M/uL (4.2-5.4) 06/24/20 08:25 Hgb 13.8 g/dL (12.0-16.0) 06/24/20 08:25 Hct 42.3 % (37-47) 06/24/20 08:25 MCV 93.4 fL (80-100) 06/24/20 08:25 MCH 30.5 pg (25-34) 06/24/20 08:25 MCHC 32.6 g/dL (32-36) 06/24/20 08:25 RDW Std Deviation 49.7 fL (36.4-46.3) H 06/24/20 08:25 RDW Coeff of Jak 14.6 % (11.5-14.5) H 06/24/20 08:25 Plt Count 278 K/uL (130-400) 06/24/20 08:25 MPV 9.3 fL (7.4-10.4) 06/24/20 08:25 Immature Gran % (Auto) 0.3 % 06/24/20 08:25 Neut % (Auto) 57.4 % 06/24/20 08:25 Lymph % (Auto) 31.5 % 06/24/20 08:25 [place] % (Auto) 8.9 % 06/24/20 08:25 Eos % (Auto) 1.5 % 06/24/20 08:25 Baso % (Auto) 0.4 % 06/24/20 08:25 Neut # (Auto) 4.28 K/uL (1.4-6.5) 06/24/20 08:25 Lymph # (Auto) 2.34 K/uL (1.2-3.4) 06/24/20 08:25 [place] # (Auto) 0.66 K/uL (0.11-0.59) H 06/24/20 08:25 Eos # (Auto) 0.11 K/uL (0-0.5) 06/24/20 08:25 Baso # (Auto) 0.03 K/uL (0-0.2) 06/24/20 08:25 Immature Gran # (Auto) 0.02 K/uL (0.00-0.02) 06/24/20 08:25 Absolute Nucleated RBC Cancelled 06/23/20 15:39 Nucleated RBC % (auto) Cancelled 06/23/20 15:39 Neutrophils % (Manual) Cancelled 06/23/20 15:39 Band Neutrophils % Cancelled 06/23/20 15:39 Lymphocytes % (Manual) Cancelled 06/23/20 15:39 Prolymphocyte % Cancelled 06/23/20 15:39 Reactive Lymphs % (Man) Cancelled 06/23/20 15:39 Monocytes % (Manual) Cancelled 06/23/20 15:39 Eosinophils % (Manual) Cancelled 06/23/20 15:39 Basophils % (Manual) Cancelled 06/23/20 15:39 Metamyelocytes % (Man) Cancelled 06/23/20 15:39 Myelocytes % (Man) Cancelled 06/23/20 15:39 Promyelocytes % (Man) Cancelled 06/23/20 15:39 Blast Cells % (Manual) Cancelled 06/23/20 15:39 Plasma Cell % (Manual) Cancelled 06/23/20 15:39 Other Cells % Cancelled 06/23/20 15:39 Nucleated RBC % Cancelled 06/23/20 15:39 Neutrophils # (Manual) Cancelled 06/23/20 15:39 Band Neutrophils # Cancelled 06/23/20 15:39 Total Absolute Neuts Cancelled 06/23/20 15:39 Lymphocytes # (Manual) Cancelled 06/23/20 15:39 Prolymphocyte # Cancelled 06/23/20 15:39 Reactive Lymphs # Cancelled 06/23/20 15:39 Total Abs Lymphocytes Cancelled 06/23/20 15:39 Monocytes # (Manual) Cancelled 06/23/20 15:39 Eosinophils # (Manual) Cancelled 06/23/20 15:39 Basophils # (Manual) Cancelled 06/23/20 15:39 Metamyelocytes # (Man) Cancelled 06/23/20 15:39 Myelocytes # (Manual) Cancelled 06/23/20 15:39 Promyelocytes # (Man) Cancelled 06/23/20 15:39 Blast Cells # (Man) Cancelled 06/23/20 15:39 Plasma Cell # (Manual) Cancelled 06/23/20 15:39 Other Cells # Cancelled 06/23/20 15:39 Nucleated RBCs # (Man) Cancelled 06/23/20 15:39 Hypersegmented Neuts Cancelled 06/23/20 15:39 Hyposegmented Neuts Cancelled 06/23/20 15:39 Hypogranular Neuts Cancelled 06/23/20 15:39 Large Granular Lymphs Cancelled 06/23/20 15:39 # Lrg Granular Lymphs Cancelled 06/23/20 15:39 Hairy Cells Cancelled 06/23/20 15:39 Smudge Cells Cancelled 06/23/20 15:39 Toxic Granulation Cancelled 06/23/20 15:39 Toxic Vacuolation Cancelled 06/23/20 15:39 Dohle Bodies Cancelled 06/23/20 15:39 Mani Rods Cancelled 06/23/20 15:39 Platelet Estimate Cancelled 06/23/20 15:39 Hypogranular Platelets Cancelled 06/23/20 15:39 Clumped Platelets Cancelled 06/23/20 15:39 Giant Platelets Cancelled 06/23/20 15:39 Platelet Satelliting Cancelled 06/23/20 15:39 RBC Morphology Cancelled 06/23/20 15:39 Polychromasia Cancelled 06/23/20 15:39 Hypochromasia Cancelled 06/23/20 15:39 Poikilocytosis Cancelled 06/23/20 15:39 Basophilic Stippling Cancelled 06/23/20 15:39 Anisocytosis Cancelled 06/23/20 15:39 Microcytosis Cancelled 06/23/20 15:39 Macrocytosis Cancelled 06/23/20 15:39 Spherocytes Cancelled 06/23/20 15:39 Pappenheimer Bodies Cancelled 06/23/20 15:39 Sickle Cells Cancelled 06/23/20 15:39 Target Cells Cancelled 06/23/20 15:39 Tear Drop Cells Cancelled 06/23/20 15:39 Ovalocytes Cancelled 06/23/20 15:39 Stomatocytes Cancelled 06/23/20 15:39 Herrera-Brice Bodies Cancelled 06/23/20 15:39 Echinocytes Cancelled 06/23/20 15:39 Acanthocytes (Spur) Cancelled 06/23/20 15:39 Rouleaux Cancelled 06/23/20 15:39 RBC Agglutinates Cancelled 06/23/20 15:39 Schistocytes Cancelled 06/23/20 15:39 RBC Morph Comment Cancelled 06/23/20 15:39 Sezary Cell Cancelled 06/23/20 15:39 Sodium 140 mmol/L (136-145) 06/24/20 08:25 Potassium 3.4 mmol/L (3.5-5.1) L 06/24/20 08:25 Chloride 109 mmol/L (98-107) H 06/24/20 08:25 Carbon Dioxide 24 mmol/L (21-32) 06/24/20 08:25 Anion Gap 7.0 (3-11) 06/24/20 08:25 BUN 9 mg/dl (7-18) 06/24/20 08:25 Creatinine 0.57 mg/dl (0.6-1.2) L 06/24/20 08:25 Est Cr Clr Drug Dosing 58.2 ml/min 06/24/20 08:25 Est GFR ( Amer) 108.1 06/24/20 08:25 Est GFR (Non-Af Amer) 93.3 06/24/20 08:25 BUN/Creatinine Ratio 15.0 (10-20) 06/24/20 08:25 Glucose 87 mg/dl (70-99) 06/24/20 08:25 Estimat Average Glucose 117 mg/dl 06/24/20 08:25 Hemoglobin A1c 5.7 % (4.5-5.6) H 06/24/20 08:25 Calcium 8.6 mg/dl (8.5-10.1) 06/24/20 08:25 Magnesium 2.1 mg/dl (1.8-2.4) 06/23/20 16:30 Total Bilirubin 0.7 mg/dl (0.2-1) 06/23/20 15:39 AST 12 U/L (15-37) L 06/23/20 16:30 ALT 20 U/L (12-78) 06/23/20 15:39 Alkaline Phosphatase 47 U/L (45-117) 06/23/20 15:39 Troponin I < 0.015 ng/ml (0-0.045) 06/23/20 15:39 Total Protein 6.8 gm/dl (6.4-8.2) 06/23/20 15:39 Albumin 3.6 gm/dl (3.4-5.0) 06/23/20 15:39 Globulin 3.2 gm/dl (2.5-4.0) 06/23/20 15:39 Albumin/Globulin Ratio 1.1 (0.9-2) 06/23/20 15:39 Triglycerides 117 mg/dl (0-150) 06/24/20 08:25 Cholesterol 150 mg/dl (0-200) 06/24/20 08:25 LDL Cholesterol, Calc 83 mg/dl 06/24/20 08:25 VLDL Cholesterol, Calc 23 mg/dl 06/24/20 08:25 HDL Cholesterol 44 mg/dl 06/24/20 08:25 Cholesterol/HDL Ratio 3 06/24/20 08:25 TSH 1.000 uIu/ml (0.300-4.500) 06/23/20 15:39 Urine Color Yellow 06/23/20 17:08 Urine Appearance Clear (Clear) 06/23/20 17:08 Urine pH 8.5 (4.5-7.5) H 06/23/20 17:08 Ur Specific [place] 1.013 (1.000-1.030) 06/23/20 17:08 Urine Protein Negative (Negative) 06/23/20 17:08 Urine Glucose (UA) Negative (Negative) 06/23/20 17:08 Urine Ketones Trace (Negative) H 06/23/20 17:08 Urine Blood Negative (Negative) 06/23/20 17:08 Urine Nitrite Negative (Negative) 06/23/20 17:08 Urine Bilirubin Negative (Negative) 06/23/20 17:08 Urine Urobilinogen Negative (Negative) 06/23/20 17:08 Ur Leukocyte Esterase Trace (Negative) H 06/23/20 17:08 Urine WBC (Auto) 1-5 /hpf (0-5) 06/23/20 17:08 Urine RBC (Auto) 0-4 /hpf (0-4) 06/23/20 17:08 U Hyaline Cast (Auto) 1-5 /lpf (0-5) 06/23/20 17:08 U Epithel Cells (Auto) 20-30 /lpf (0-5) H 06/23/20 17:08 Urine Bacteria (Auto) Negative (Negative) 06/23/20 17:08 COVID-19 Eval Order Covid19 [facility]Now [facility] 06/23/20 16:40 Hepatitis C Ab Screen Neg (Neg) 06/23/20 16:30 SARS-CoV-2, RNA, NAAT NEGATIVE (NEGATIVE) 06/23/20 16:40 Resident Activity Tracking Resident Involvement: Resident Care Provided Care Provided: Adult Hospital Medicine (1) Shingles Herpes zoster complications: with nervous system involvement 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
[2020-06-24] MEDS ORDERED: GADOBUTROL 65ML VIAL IV ONE (10:13)
--- NOTE | 2020-06-24 10:26 | Magnetic Resonance Report ---
Brain MRI WITH AND WITHOUT CONTRAST HISTORY: Weakness. Syncope. TECHNIQUE: Multiplanar multisequence MRI of the brain was performed both before and after the intrave nous administration of contrast. COMPARISON STUDY: Head CT 06/23/2020. FINDINGS: There is no mass, hematoma, midline shift, or acute infarct. The paranasal sinuses are josh r. The mastoid air cells are clear. The ventricles and sulci demonstrate mild age-related involutiona l changes. Scattered foci of T2 hyperintensity seen within the periventricular and subcortical white matter are nonspecific but suggestive of mild microvascular ischemic changes. The major vascular flow voids at the skull base are well-maintained. No abnormal enhancement. Chronic mild narrowing at the cervicomedullary junction. This is likely developmental. IMPRESSION: No acute intracranial abnormality. Scattered foci of T2 hyperintensity seen within the periventricula r and subcortical white matter are nonspecific but favor microvascular ischemic change. ACT 112: Negative or not required by law. Electronically signed by: Elias Laura M.D. 06/24/2020 10:25 AM
[2020-06-24] MEDS: POTASSIUM CHLORIDE / WTR 10 MEQ/100 ML PLCT IV SCH ×3 (10:43→15:33)
--- NOTE | 2020-06-24 17:30 | Billing Data ---
Date of Service June 24, 2020 Coding Level of Care Code 16789 Subseq Obs Care Lvl 2
[2020-06-24] MEDS: diphenhydrAMINE 50 MG/ML VIAL IV PRN (17:47)
[2020-06-24] MEDS: LIDOCAINE 5% 1 PATCH TD SCH (18:04)
[2020-06-24] MEDS: OXYBUTYNIN CHLORIDE 5 MG TAB PO SCH (20:25)
[2020-06-24] MEDS ORDERED: CALAMINE/PRAMOXINE LOTION 180 APPLN/180 ML BTL EXT PRN (21:44)
[2020-06-25] MEDS ORDERED: IBUPROFEN 200 MG TAB PO PRN (00:02)
[2020-06-25] MEDS: ASPIRIN 81 MG ECTAB PO SCH (08:17)
[2020-06-25] MEDS: MULTIVITAMIN TAB PO SCH (08:18)
[2020-06-25] MEDS: amLODIPine BESYLATE 5 MG TAB PO SCH (08:18)
[2020-06-25] MEDS: SERTRALINE HCL 50 MG TABLET PO SCH (08:18)
[2020-06-25] MEDS: ENOXAPARIN INJ 40 MG/0.4 ML SYR SQ SCH (08:19)
[2020-06-25] MEDS: MICONAZOLE NITRATE POWDER 43 GM EXT PRN (08:20)
[2020-06-25] MEDS: CALCIUM 600MG + VIT D 400 IU TAB PO SCH (08:20)
[2020-06-25] MEDS: SODIUM CHLORIDE 0.9% 1000ML 1,000 ML IV SCH ×2 (08:21→19:21)
[2020-06-25] MEDS: LIDOCAINE 5% 1 PATCH TD SCH (08:22)
[2020-06-25] MEDS: PREGABALIN 25 MG CAP PO SCH ×2 (08:24→20:49)
[2020-06-25 08:44] LABS: BUN Creatinine Ratio 17.1 (10-20); Calcium 8.5 mg/dl (8.5-10.1); Creatinine Clr Calc Pharmacy 75.1 ml/min; Est GFR (African American) 116.8; Est GFR (Non-African American) 100.8; Potassium 3.5 mmol/L (3.5-5.1)
--- NOTE | 2020-06-25 10:07 | Hospitalist Progress Note ---
Date of Service June 25, 2020 Assessment & Plan (1) Shingles: 69 yo F w hx HTN, osteoporotic fractures, achodroplasia, admitted for global weakness in context of recent shingles infection. Shingles - valacyclovir for containment of infection - benadryl 25 mg TID PRN for itching, calomine lotion, lidocaine patches to aid itching + local pain - varicella contact precautions Weakness - MRI negative for intracranial abnormalities - labs negative for acute bacterial infection - electrolyte derangements (hypokalemia) may contribute to lethargy however do not fully account for symptoms - given R>L weakness in upper arms, weakness likely secondary to shingles and decreased PO intake since start of infection - continue support care, monitoring for improvement - ER workup for fall negative for acute face, c-spine fractures or bleeding on CT DVT:lovenox FEN/GI: NS @ 100, regular diet Code Status: Full Code Dispo: inpatient rehab pending Pt/Ot evals (2) Hyponatremia: (3) Weakness: (4) Overactive bladder: (5) Osteoporosis: (6) HTN (hypertension), benign: Admission and Anticipated Discharge Date Admission Date: June 23, 2020 Supervising Physician Co-Signing Physician Notes I personally examined the patient and verified all irvin points of history and exam, discussed case, and agree with decision making with Dr Delgado. still feeling weak. feeling about the same as far as weakness, seems less bothered by shingles today though. waiting on rehab. vitals noted nad heent nc at mmm breathing unlabored no accessory muscles good effort weakness/failure to thrive - related to shingles- possibly some directly just due to metabolic stress, also indirect due to poor sleep/poor PO intake, possibly med side effects. continue lidocaine patches, benadryl prn in addition to current measures. PT/OT eval and treat. rehab once possible (hopefully tomorrow) otherwise as above Subjective continues to feel weak this morning. some degree on improvement in itching from benadryl and calomine lotion. Review of Systems Constitutional: + fatigue; no fever, no chills and no body aches Respiratory: no cough and no dyspnea Cardiovascular: no chest pain, no dyspnea and no edema Gastrointestinal: no abdominal pain, no nausea, no vomiting, no constipation and no diarrhea/loose stools Genitourinary: no dysuria Physical Exam Physical Exam: Constitutional: petite female sitting in mild distress, Eyes: EOMI, pupils equal and reactive bilaterally, no scleral icterus Cardiac: RRR, no murmurs, gallops or rubs. Normal S1, S2 skin: rash of right upper arm into antecubital fossa Results & Data Results & Data ([facility]) Vital Signs (Past 12 Hours) Vital Signs Temp Pulse Pulse Resp BP Pulse Ox 06/25/20 09:10 36.5 C 103 H 20 154/67 H 94 06/25/20 07:30 96 H 06/25/20 04:08 36.6 C 81 18 136/81 97 06/24/20 23:00 36.5 C 99 H 100 H 20 178/82 H 96 Laboratory Results WBC 7.44 K/uL (4.8-10.8) 06/24/20 08:25 RBC 4.53 M/uL (4.2-5.4) 06/24/20 08:25 Hgb 13.8 g/dL (12.0-16.0) 06/24/20 08:25 Hct 42.3 % (37-47) 06/24/20 08:25 MCV 93.4 fL (80-100) 06/24/20 08:25 MCH 30.5 pg (25-34) 06/24/20 08:25 MCHC 32.6 g/dL (32-36) 06/24/20 08:25 RDW Std Deviation 49.7 fL (36.4-46.3) H 06/24/20 08:25 RDW Coeff of Jak 14.6 % (11.5-14.5) H 06/24/20 08:25 Plt Count 278 K/uL (130-400) 06/24/20 08:25 MPV 9.3 fL (7.4-10.4) 06/24/20 08:25 Immature Gran % (Auto) 0.3 % 06/24/20 08:25 Neut % (Auto) 57.4 % 06/24/20 08:25 Lymph % (Auto) 31.5 % 06/24/20 08:25 [place] % (Auto) 8.9 % 06/24/20 08:25 Eos % (Auto) 1.5 % 06/24/20 08:25 Baso % (Auto) 0.4 % 06/24/20 08:25 Neut # (Auto) 4.28 K/uL (1.4-6.5) 06/24/20 08:25 Lymph # (Auto) 2.34 K/uL (1.2-3.4) 06/24/20 08:25 [place] # (Auto) 0.66 K/uL (0.11-0.59) H 06/24/20 08:25 Eos # (Auto) 0.11 K/uL (0-0.5) 06/24/20 08:25 Baso # (Auto) 0.03 K/uL (0-0.2) 06/24/20 08:25 Immature Gran # (Auto) 0.02 K/uL (0.00-0.02) 06/24/20 08:25 Absolute Nucleated RBC Cancelled 06/23/20 15:39 Nucleated RBC % (auto) Cancelled 06/23/20 15:39 Neutrophils % (Manual) Cancelled 06/23/20 15:39 Band Neutrophils % Cancelled 06/23/20 15:39 Lymphocytes % (Manual) Cancelled 06/23/20 15:39 Prolymphocyte % Cancelled 06/23/20 15:39 Reactive Lymphs % (Man) Cancelled 06/23/20 15:39 Monocytes % (Manual) Cancelled 06/23/20 15:39 Eosinophils % (Manual) Cancelled 06/23/20 15:39 Basophils % (Manual) Cancelled 06/23/20 15:39 Metamyelocytes % (Man) Cancelled 06/23/20 15:39 Myelocytes % (Man) Cancelled 06/23/20 15:39 Promyelocytes % (Man) Cancelled 06/23/20 15:39 Blast Cells % (Manual) Cancelled 06/23/20 15:39 Plasma Cell % (Manual) Cancelled 06/23/20 15:39 Other Cells % Cancelled 06/23/20 15:39 Nucleated RBC % Cancelled 06/23/20 15:39 Neutrophils # (Manual) Cancelled 06/23/20 15:39 Band Neutrophils # Cancelled 06/23/20 15:39 Total Absolute Neuts Cancelled 06/23/20 15:39 Lymphocytes # (Manual) Cancelled 06/23/20 15:39 Prolymphocyte # Cancelled 06/23/20 15:39 Reactive Lymphs # Cancelled 06/23/20 15:39 Total Abs Lymphocytes Cancelled 06/23/20 15:39 Monocytes # (Manual) Cancelled 06/23/20 15:39 Eosinophils # (Manual) Cancelled 06/23/20 15:39 Basophils # (Manual) Cancelled 06/23/20 15:39 Metamyelocytes # (Man) Cancelled 06/23/20 15:39 Myelocytes # (Manual) Cancelled 06/23/20 15:39 Promyelocytes # (Man) Cancelled 06/23/20 15:39 Blast Cells # (Man) Cancelled 06/23/20 15:39 Plasma Cell # (Manual) Cancelled 06/23/20 15:39 Other Cells # Cancelled 06/23/20 15:39 Nucleated RBCs # (Man) Cancelled 06/23/20 15:39 Hypersegmented Neuts Cancelled 06/23/20 15:39 Hyposegmented Neuts Cancelled 06/23/20 15:39 Hypogranular Neuts Cancelled 06/23/20 15:39 Large Granular Lymphs Cancelled 06/23/20 15:39 # Lrg Granular Lymphs Cancelled 06/23/20 15:39 Hairy Cells Cancelled 06/23/20 15:39 Smudge Cells Cancelled 06/23/20 15:39 Toxic Granulation Cancelled 06/23/20 15:39 Toxic Vacuolation Cancelled 06/23/20 15:39 Dohle Bodies Cancelled 06/23/20 15:39 Mani Rods Cancelled 06/23/20 15:39 Platelet Estimate Cancelled 06/23/20 15:39 Hypogranular Platelets Cancelled 06/23/20 15:39 Clumped Platelets Cancelled 06/23/20 15:39 Giant Platelets Cancelled 06/23/20 15:39 Platelet Satelliting Cancelled 06/23/20 15:39 RBC Morphology Cancelled 06/23/20 15:39 Polychromasia Cancelled 06/23/20 15:39 Hypochromasia Cancelled 06/23/20 15:39 Poikilocytosis Cancelled 06/23/20 15:39 Basophilic Stippling Cancelled 06/23/20 15:39 Anisocytosis Cancelled 06/23/20 15:39 Microcytosis Cancelled 06/23/20 15:39 Macrocytosis Cancelled 06/23/20 15:39 Spherocytes Cancelled 06/23/20 15:39 Pappenheimer Bodies Cancelled 06/23/20 15:39 Sickle Cells Cancelled 06/23/20 15:39 Target Cells Cancelled 06/23/20 15:39 Tear Drop Cells Cancelled 06/23/20 15:39 Ovalocytes Cancelled 06/23/20 15:39 Stomatocytes Cancelled 06/23/20 15:39 Herrera-Clever Bodies Cancelled 06/23/20 15:39 Echinocytes Cancelled 06/23/20 15:39 Acanthocytes (Spur) Cancelled 06/23/20 15:39 Rouleaux Cancelled 06/23/20 15:39 RBC Agglutinates Cancelled 06/23/20 15:39 Schistocytes Cancelled 06/23/20 15:39 RBC Morph Comment Cancelled 06/23/20 15:39 Sezary Cell Cancelled 06/23/20 15:39 Sodium 141 mmol/L (136-145) 06/25/20 07:26 Potassium 3.5 mmol/L (3.5-5.1) 06/25/20 07:26 Chloride 111 mmol/L (98-107) H 06/25/20 07:26 Carbon Dioxide 22 mmol/L (21-32) 06/25/20 07:26 Anion Gap 8.0 (3-11) 06/25/20 07:26 BUN 8 mg/dl (7-18) 06/25/20 07:26 Creatinine 0.45 mg/dl (0.6-1.2) L 06/25/20 07:26 Est Cr Clr Drug Dosing 75.1 ml/min 06/25/20 07:26 Est GFR ( Amer) 116.8 06/25/20 07:26 Est GFR (Non-Af Amer) 100.8 06/25/20 07:26 BUN/Creatinine Ratio 17.1 (10-20) 06/25/20 07:26 Glucose 84 mg/dl (70-99) 06/25/20 07:26 Estimat Average Glucose 117 mg/dl 06/24/20 08:25 Hemoglobin A1c 5.7 % (4.5-5.6) H 06/24/20 08:25 Calcium 8.5 mg/dl (8.5-10.1) 06/25/20 07:26 Magnesium 2.1 mg/dl (1.8-2.4) 06/23/20 16:30 Total Bilirubin 0.7 mg/dl (0.2-1) 06/23/20 15:39 AST 12 U/L (15-37) L 06/23/20 16:30 ALT 20 U/L (12-78) 06/23/20 15:39 Alkaline Phosphatase 47 U/L (45-117) 06/23/20 15:39 Troponin I < 0.015 ng/ml (0-0.045) 06/23/20 15:39 Total Protein 6.8 gm/dl (6.4-8.2) 06/23/20 15:39 Albumin 3.6 gm/dl (3.4-5.0) 06/23/20 15:39 Globulin 3.2 gm/dl (2.5-4.0) 06/23/20 15:39 Albumin/Globulin Ratio 1.1 (0.9-2) 06/23/20 15:39 Triglycerides 117 mg/dl (0-150) 06/24/20 08:25 Cholesterol 150 mg/dl (0-200) 06/24/20 08:25 LDL Cholesterol, Calc 83 mg/dl 06/24/20 08:25 VLDL Cholesterol, Calc 23 mg/dl 06/24/20 08:25 HDL Cholesterol 44 mg/dl 06/24/20 08:25 Cholesterol/HDL Ratio 3 06/24/20 08:25 TSH 1.000 uIu/ml (0.300-4.500) 06/23/20 15:39 Urine Color Yellow 06/23/20 17:08 Urine Appearance Clear (Clear) 06/23/20 17:08 Urine pH 8.5 (4.5-7.5) H 06/23/20 17:08 Ur Specific [place] 1.013 (1.000-1.030) 06/23/20 17:08 Urine Protein Negative (Negative) 06/23/20 17:08 Urine Glucose (UA) Negative (Negative) 06/23/20 17:08 Urine Ketones Trace (Negative) H 06/23/20 17:08 Urine Blood Negative (Negative) 06/23/20 17:08 Urine Nitrite Negative (Negative) 06/23/20 17:08 Urine Bilirubin Negative (Negative) 06/23/20 17:08 Urine Urobilinogen Negative (Negative) 06/23/20 17:08 Ur Leukocyte Esterase Trace (Negative) H 06/23/20 17:08 Urine WBC (Auto) 1-5 /hpf (0-5) 06/23/20 17:08 Urine RBC (Auto) 0-4 /hpf (0-4) 06/23/20 17:08 U Hyaline Cast (Auto) 1-5 /lpf (0-5) 06/23/20 17:08 U Epithel Cells (Auto) 20-30 /lpf (0-5) H 06/23/20 17:08 Urine Bacteria (Auto) Negative (Negative) 06/23/20 17:08 COVID-19 Eval Order Covid19 [facility]Now [facility] 06/23/20 16:40 Hepatitis C Ab Screen Neg (Neg) 06/23/20 16:30 SARS-CoV-2, RNA, NAAT NEGATIVE (NEGATIVE) 06/23/20 16:40 Resident Activity Tracking Resident Involvement: Resident Care Provided Care Provided: Adult Hospital Medicine (1) Shingles Herpes zoster complications: with nervous system involvement 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
[2020-06-25] MEDS ORDERED: MELATONIN 3 MG TAB PO PRN (10:30)
[2020-06-25] MEDS: ACETAMINOPHEN 325 MG TAB PO PRN ×2 (12:04→22:00)
[2020-06-25] MEDS ORDERED: KETOROLAC TROMETHAMINE 15 MG/ML VIAL IV ONE (13:31)
[2020-06-25] MEDS: diphenhydrAMINE 50 MG/ML VIAL IV PRN ×2 (14:42→20:57)
--- NOTE | 2020-06-25 18:19 | Billing Data ---
Date of Service June 25, 2020 Coding Level of Care Code 45471 Subseq Obs Care Lvl 2
[2020-06-25] MEDS: OXYBUTYNIN CHLORIDE 5 MG TAB PO SCH (20:48)
[2020-06-25] MEDS ORDERED: diphenhydrAMINE Capsule 25 MG CAP PO PRN (21:34)
[2020-06-26] MEDS: ACETAMINOPHEN 325 MG TAB PO PRN (03:53)
[2020-06-26 07:18] LABS: Creatinine Clr Calc Pharmacy 77.2 ml/min; Est GFR (African American) 117.7; Est GFR (Non-African American) 101.6
[2020-06-26] MEDS: SERTRALINE HCL 50 MG TABLET PO SCH (08:18)
[2020-06-26] MEDS: PREGABALIN 25 MG CAP PO SCH (08:18)
[2020-06-26] MEDS: CALCIUM 600MG + VIT D 400 IU TAB PO SCH (08:18)
[2020-06-26] MEDS: amLODIPine BESYLATE 5 MG TAB PO SCH (08:19)
[2020-06-26] MEDS: ASPIRIN 81 MG ECTAB PO SCH (08:19)
[2020-06-26] MEDS: MULTIVITAMIN TAB PO SCH (08:20)
[2020-06-26] MEDS: ENOXAPARIN INJ 40 MG/0.4 ML SYR SQ SCH (08:20)
[2020-06-26] MEDS: LIDOCAINE 5% 1 PATCH TD SCH (08:20)
--- NOTE | 2020-06-26 09:17 | Discharge Summary ---
Date of Service June 26, 2020 Admission HPI Per Admitting Provider This is a 69-year-old female who lives in the [place] area but has a primary care physician who is Dr. Levar Parra of [facility]. Patient says that shortly after the new year she developed shingles affecting her right shoulder and right upper arm. She was placed on Valtrex as well as as needed oxycodone on June 11 by her primary care physician. Patient notes that since taking this medication she has felt somewhat under the weather. Since taking this medication she notes that she is fallen at home 3 times most recently being earlier today. I did question the patient about her fall and she said that she did not have any preceding chest pain or shortness of breath. She is not having nausea vomiting and feels she has been eating and drinking her normal amount and is therefore not dehydrated. Patient did not exhibit any unilateral arm or leg weakness. She did not have any visual loss or visual disturbances. She did not feel lightheaded or dizzy. She did not have any dysarthria or dysphagia. She notes today when she fell she struck her head on a [place] cabinet and her found her and called EMS bringing her to [facility]. Thus far [facility] a chest x-ray did not reveal any evidence of pneumonia or CHF. CT scan of the head did not demonstrate any acute stroke or any intracerebral bleed. No fractures or subluxations were noted on the CT scan of the cervical spine. Patient had a facial CT scan and there were no facial fractures noted. An EKG showed normal sinus rhythm without any acute ischemic changes. Labs including a CBC were white blood cell count was 13.6 hemoglobin, hematocrit, and platelet count were all noted to be within normal range. Her sodium was slightly low at 132 and potassium was slightly low at 3.4. Her BUN and creatinine were both within the normal range. There were no elevation of her cardiac enzymes. Urinalysis was not indicative of urinary tract infection and a Covid test was negative. After her ER evaluation the staff in the emergency department attempted to ambulate the patient from the bed to the restroom and patient exhibited some ambulatory dysfunction. Due to this concern and her falls at home we have been asked to admit her for further evaluation. As noted the patient does not have any chest pain or shortness of breath. She has no history of stroke during her current presentation did not exhibit any unilateral arm or leg weakness. Again she had no visual disturbances and no dysphagia or dysarthria. She has not had any fevers, shakes, or chills. She has no nausea vomiting. She does note as a result of her shingles she does have some burning in the affected area which is her right shoulder and right upper arm. At the time of my exam she is resting comfortably in bed she is not in any distress. Admission Exam Per Admitting Provider Constitutional: well developed and well nourished; no acute distress Eyes: PERRL and EOM intact bilaterally Wears glasses ENMT: Ears: no hearing impairment No vesicles noted on the tympanic membranes, no evidence of nasal trauma, oral mucosa is moist Neck: trachea midline Respiratory: normal respiratory effort, lungs clear to auscultation Cardiovascular: Rate/Rhythm: regular rate and regular rhythm Vessels: dorsalis pedis pulses present and radial pulses present Gastrointestinal (Abdomen): Percussion/Palpation: abdomen soft; abdomen nontender No pain with palpation Musculoskeletal: No calf tenderness, no gross orthopedic abnormalities Skin: normal turgor Vesicles noted on the right shoulder and right upper arm consistent with shingles Neurologic: CN's II-XI intact bilaterally, moves all extremities and awake Cranial Nerves: PERRL and normal hearing Patient is able to move all 4 extremities and follows simple commands without noted focal deficits. Her speech is coherent and nongarbled Psychiatric: A+Ox3, euthymic affect Principal Diagnosis weakness Discharge Exam Constitutional: in no apparent distress, sitting in bedside chair Eyes: EOMI, pupils equal and reactive bilaterally, no scleral icterus Cardiac: RRR, no murmurs, gallops or rubs. Normal S1, S2 Pulm: CTA BL, no wheezes, rhonchi, crackles or rubs, moving air well throughout both lungs Abd: soft, nontender, nondistended, normal bowel sounds, no rebound or guarding Extremities: 2+ peripheral pulses, no edema, persistent generalized weakness in all limbs Discharge Data Allergies Allergy/AdvReac Type Severity Reaction Status Date / Time Penicillins Allergy Unknown Swelling Verified 12/06/19 09:04 of Lip/Tongue/Throat ibuprofen Allergy Swelling Verified 12/06/19 09:04 [From NeoProfen (ibuprofen of lysn)(PF)] Lip/Tongue/Throat lactose Allergy Gastrointestinal Verified 12/06/19 09:04 Upset Sulfa (Sulfonamide Allergy Hives Unverified 12/06/19 09:04 Antibiotics) Consultations 06/23/20 17:19 ED Decision to Admit Stat 06/23/20 19:51 Consult Case Management - Discharge Planning Routine Ordered Studies 06/23/20 15:12 CT head/brain wo con Stat 06/23/20 15:24 CT cervical spine wo con Stat CT facial bones wo con Stat 06/24/20 01:06 MR brain wo/w con Routine Hospital Course (1) Shingles: 69 yo F w hx HTN, osteoporotic fractures, achodroplasia, admitted for global weakness and fall in context of recent shingles infection. Shingles Pain somewhat improved with 25 mg Lyrica BID, lidocaine patches, benadryl for itching along with calomine lotion. Weakness Likely secondary to shingles infection and exacerbated by poor PO intake. Workup included MRI and routine labwork negative for other etiologies of weakness. Was able to work with PT and highly goal oriented to getting better and stronger. CT c-spine and face negative for fractures, bleeding in context of fall and weakness. (2) Hyponatremia: (3) Weakness: (4) Overactive bladder: (5) Osteoporosis: (6) HTN (hypertension), benign: Total Time Total Time Spent Total Time Spent (In Minutes): <30 Discharge Plan Discharge Items Patient Disposition: Transfer Inpatient Rehab Fac Reason For Visit: VERTIGO Discharge Diagnosis: Shingles, Weakness Activity: Resume your previous activity Non-emergency contact: Primary Care Provider Call non-emergency contact if: you have any medication questions and your symptoms worsen Follow-up/Referrals: Eric Parra MD [Primary Care Provider] - Diet: Regular Addtl Attending Provider Instructions: (1) Shingles: 69 yo F w hx HTN, osteoporotic fractures, achondroplasia, admitted for global weakness in context of recent shingles infection. Shingles - benadryl 25 mg TID PRN for itching, calomine lotion Q8, lidocaine patches to aid itching + local pain - varicella contact precautions - valacyclovir held as patient feels this contributed to presentation Weakness - MRI negative for intracranial abnormalities - labs negative for acute bacterial infection - electrolyte derangements (hypokalemia) may contribute to lethargy however do not fully account for symptoms - given R>L weakness in upper arms, weakness likely secondary to shingles and decreased PO intake since start of infection - continue support care, monitoring for improvement - ER workup for fall negative for acute face, c-spine fractures or bleeding on CT - oxycodone held as likely exacerbating weakness DVT: lovenox FEN/GI: NS @ 100, regular diet, encourage PO fluids Code Status: Full Code Dispo: inpatient rehab Pending Studies at Discharge: No Stand-Alone Forms: My [facility] Skilled Items Patient informed of condition?: Yes DNR: No Discharge Level of Care: Acute rehab Communicable Disease: Yes Discharge Prognosis: Improving Lines: None Urinary Catheter: No Medications and DC Order Prescriptions: New acetaminophen 325 mg Tablet 650 mg PO Q6 PRN (Reason: fever or pain) 30 Days Qty: 90 RF: 0 melatonin 3 mg Tablet 3 mg PO HS PRN (Reason: sleep) 30 Days RF: 0 lidocaine 5 % Adhesive Patch,Medicated 1 patch transdermal QAM 30 Days Qty: 30 RF: 0 Caladryl 1-8 % Lotion 1 applic EXT Q8 PRN (Reason: itching) 30 Days Qty: 177 RF: 0 enoxaparin 40 mg/0.4 mL Syringe 40 mg subcut QAM 30 Days Qty: 12 RF: 0 pregabalin [Lyrica] 25 mg Capsule 25 mg PO BID 30 Days Qty: 60 RF: 0 diphenhydramine HCl [Benadryl] 25 mg Capsule 25 mg PO Q4H PRN (Reason: itching) 30 Days Qty: 80 RF: 0 pregabalin 25 mg capsule 25 mg PO BID Qty: 60 RF: 0 Continued multivitamin Tablet 1 tab PO QAM RF: 0 aspirin [Neto Chewable Aspirin] 81 mg Tablet,Chewable 162 mg PO QAM RF: 0 Ensure Liquid 1 ea PO DAILY PRN (Reason: Nutrition Supplement) RF: 0 ibandronate [Boniva] 150 mg tablet 150 mg PO MONTHLY RF: 0 calcium carbonate-vitamin D3 [Calcium 500 + D] 500 mg(1,250mg) -400 unit Tablet 2 tab PO QAM RF: 0 Benefiber Clear SF (dextrin) 3 gram/3.5 gram Powder In Packet 1.5 g PO HS PRN (Reason: Constipation) RF: 0 sertraline 25 mg tablet 25 mg PO QAM RF: 0 amlodipine 2.5 mg Tablet 2.5 mg PO QAM RF: 0 oxybutynin chloride 5 mg Tablet 5 mg PO HS RF: 0 Discontinued loperamide [Imodium A-D] 2 mg Tablet 2 mg PO Q3H PRN (Reason: Diarrhea) RF: 0 oxycodone-acetaminophen 5-325 mg tablet 0.5 - 1 tab PO QID PRN (Reason: Pain) RF: 0 Discharge Orders: Discharge Order (Routine); Ordered 06/26/20 Ordered By: Diya Delgado Admission Data Admit Date/Time: 06/23/20 17:58 Attending Provider: Mahendra Blankenship Admit Provider: Tamera Pina Primary Care Provider: Eric Parra Other Providers: Tamera Pina ; Diya Delgado Other Interventions: Discharge Summary Assessment (RN) Last Done: 06/26/20 11:15 Supervising Physician Co-Signing Physician Notes I personally examined the patient and verified all irvin points of history and exam, discussed case, and agree with decision making with Dr Delgado. feeling about the same, rehab / subacute rehab approved. vitals noted nad heent nc at mmm breathing unlabored no accessory muscles good effort weakness/failure to thrive - related to shingles- possibly some directly just due to metabolic stress, also indirect due to poor sleep/poor PO intake, possibly med side effects. stable for transfer to rehab facility for more aggressive PT/OT. conitnue current med management otherwise as above Resident Activity Tracking Resident Involvement: Resident Care Provided Care Provided: Adult Hospital Medicine
--- NOTE | 2020-06-26 17:21 | Billing Data ---
Date of Service June 26, 2020 Coding Level of Care Code 68105 OBS Care - Discharge
== END 2020-06-26 14:05 ==
LOC: ED 14:51 → 2N 14:51 → SUATTDRO 17:58 → 2N 19:20